=== PATIENT | female | born 1945 | race Two or more races ===

== ENCOUNTER 2022-02-17 00:49 | Emergency (ER) | payer OTHER ==
[~2022-02-17] VITALS: Ht 152.4 cm; Wt 63.5 kg
[~2022-02-17 00:49] MED LIST: ALEN35TA18 PO; AMLO-489 PO; APIX5TAB OR; ASPI1CHW15 PO; ATOR40TA52 PO; AZIT1POW PO; BUSP5TAB51 PO; DULO60CA PO; FURO1TAB31 PO; INSLANTI SC; INSLISPI SC; LATA0.0019 OP; LEV100T PO; METF-929 PO; METO-6 PO; OXYB5TAB61 PO; POTA10TA51 PO; SERT50TA19 PO
[2022-02-17 02:22] LABS: Urine Bacteria NONE SEEN /hpf (None Seen); Urine Blood Negative /uL (Negative); Urine Hyaline Cast FEW /lpf (0 - 2); Urine Specific Gravity 1.015 (1.001-1.035); Urine WBC 4 /hpf (0 - 5)
[2022-02-17 03:25] LABS: Basophils # (auto) 0.1 10 ^3/uL (0-0.2); Eosinophils # (auto) 0.3 10 ^3/uL (0-0.8); Monocytes # (auto) 0.6 10 ^3/uL (0-1.3); Red Blood Cells 3.24 10^6/uL (4.0-5.20)
[2022-02-17 03:26] LABS: Basophils % (auto) 1.1 % (0.0-2.0); Eosinophils % (auto) 4.5 % (0.0-7.0); Hematocrit 24.5 % (36.0-46.0); Hemoglobin 8.4 g/dL (12.2-16.2); Lymphocytes # (auto) 1.9 10 ^3/uL (0.4-5.4); Lymphocytes % (auto) 29.6 % (10.0-50.0); Mean Corpuscular Hemoglobin 25.8 pg (28.0-32.0); Mean Corpuscular Hgb Conc. 34.1 g/dL (32.0-36.0); Mean Corpuscular Volume 75.6 fL (80.0-100.0); Monocytes % (auto) 9.5 % (0.0-12.0); Neutrophils # (auto) 3.5 10 ^3/uL (1.6-8.6); Neutrophils % (auto) 55.3 % (37.0-80.0); Red Cell Distribution Width 15.7 % (11.8-14.3); White Blood Cell 6.4 10^3/uL (4.4-10.8)
[2022-02-17] MEDS ORDERED: NITR-87 PO (03:26)
[2022-02-17 03:45] LABS: Albumin 3.5 g/dL (3.4-5.0); BUN/Creatinine Ratio 21.9; Calcium 8.6 mg/dL (8.5-10.1); Potassium 4.7 mmol/L (3.5-5.1)
[2022-02-17 03:48] LABS: Bilirubin, Total 0.2 mg/dL (0.2-1.0); Total Protein 6.8 g/dL (6.4-8.2)
[2022-02-17] MEDS ORDERED: HYDROcodone-ACET 5/325MG TAB PO ONE (04:15)
[2022-02-17 05:20] VITALS: BP 160/43
[2022-02-18] MEDS ORDERED: HYDR-4902 PO (21:47)
== END 2022-02-17 05:30 | disposition home or self-care (01) ==
LOC: ER 00:49
DX: N39.0 Urinary tract infection, site not specified (principal); I10 Essential (primary) hypertension; D64.9 Anemia, unspecified; E11.9 Type 2 diabetes mellitus without complications; Z79.4 Long term (current) use of insulin; Z79.899 Other long term (current) drug therapy; Z79.82 Long term (current) use of aspirin; Z79.2 Long term (current) use of antibiotics
CPT/HCPCS: 36415; 74176; 80053; 81001; 85025; 93005

== ENCOUNTER → 2022-02-18 | Emergency (ER) | payer OTHER ==
[~2022-02-18] VITALS: Ht 152.4 cm; Wt 63.5 kg
[~2022-02-18] MED LIST changes: +HYDR-4902 PO; +HYDROcodone-ACET 5/325MG TAB PO ONE; +IOHEXOL 300 MG/ML 100ML BOTTLE IJ ONE; +NITR-87 PO; +SODIUM CHLORIDE 0.9% 500 ML IV ONE; +fentaNYL CITRATE 100 MCG/2 ML VL IV ONE
[2022-02-18 17:00] LABS: Basophils # (auto) 0.1 10 ^3/uL (0-0.2); Basophils % (auto) 0.8 % (0.0-2.0); Eosinophils # (auto) 0.2 10 ^3/uL (0-0.8); Eosinophils % (auto) 3.1 % (0.0-7.0); Hematocrit 24.7 % (36.0-46.0); Hemoglobin 8.2 g/dL (12.2-16.2); Lymphocytes # (auto) 1.6 10 ^3/uL (0.4-5.4); Lymphocytes % (auto) 23.7 % (10.0-50.0); Mean Corpuscular Hemoglobin 25.2 pg (28.0-32.0); Mean Corpuscular Volume 76.3 fL (80.0-100.0); Monocytes # (auto) 0.6 10 ^3/uL (0-1.3); Monocytes % (auto) 8.6 % (0.0-12.0); Neutrophils # (auto) 4.4 10 ^3/uL (1.6-8.6); Neutrophils % (auto) 63.8 % (37.0-80.0); Red Blood Cells 3.24 10^6/uL (4.0-5.20); Red Cell Distribution Width 15.4 % (11.8-14.3); White Blood Cell 6.9 10^3/uL (4.4-10.8)
[2022-02-18 17:16] LABS: Albumin 3.6 g/dL (3.4-5.0); Calcium 8.6 mg/dL (8.5-10.1); Potassium 4.5 mmol/L (3.5-5.1)
[2022-02-18 17:19] LABS: BUN/Creatinine Ratio 20.5
[2022-02-18 17:21] LABS: Bilirubin, Total 0.2 mg/dL (0.2-1.0); Total Protein 6.7 g/dL (6.4-8.2)
[2022-02-18 22:59] VITALS: BP 167/57
== END | disposition home or self-care (01) ==
LOC: ER 15:55
DX: R10.32 Left lower quadrant pain (principal); R93.89 Abnormal findings on diagnostic imaging of other specified body structures; N63.31 Unspecified lump in axillary tail of the right breast; N63.10 Unspecified lump in the right breast, unspecified quadrant; E11.9 Type 2 diabetes mellitus without complications; I10 Essential (primary) hypertension
CPT/HCPCS: 36415; 74177; 80053; 83605; 84484; 85025; 93005; 96361; 96374; 99285; J3010; J7030; Q9967

== ENCOUNTER → 2022-12-21 | Outpatient (CLI) | payer OTHER ==
[~2022-12-21] MED LIST changes: -HYDROcodone-ACET 5/325MG TAB PO ONE; -IOHEXOL 300 MG/ML 100ML BOTTLE IJ ONE; +LEVO500T31 PO; -SODIUM CHLORIDE 0.9% 500 ML IV ONE; -fentaNYL CITRATE 100 MCG/2 ML VL IV ONE
[2022-12-21 13:38] LABS: Calcium 8.8 mg/dL (8.5-10.1); Potassium 5.5 mmol/L (3.5-5.1)
[2022-12-21 13:45] LABS: Albumin 3.1 g/dL (3.4-5.0); BUN/Creatinine Ratio 18.5 (10.0-20.0); Bilirubin, Total 0.2 mg/dL (0.2-1.0); Total Protein 6.6 g/dL (6.4-8.2)
[2022-12-22 06:59] LABS: Basophils # (auto) 0.1 10 ^3/uL (0-0.2); Eosinophils # (auto) 0.2 10 ^3/uL (0-0.8)
[2022-12-22 07:01] LABS: Basophils % (auto) 1.5 % (0.0-2.0); Hematocrit 25.4 % (36.0-46.0); Lymphocytes # (auto) 1.8 10 ^3/uL (0.4-5.4); Lymphocytes % (auto) 25.7 % (10.0-50.0); Mean Corpuscular Hemoglobin 25.4 pg (28.0-32.0); Mean Corpuscular Hgb Conc. 31.5 g/dL (32.0-36.0); Mean Corpuscular Volume 80.7 fL (80.0-100.0); Monocytes # (auto) 0.4 10 ^3/uL (0-1.3); Monocytes % (auto) 6.3 % (0.0-12.0); Neutrophils # (auto) 4.4 10 ^3/uL (1.6-8.6); Neutrophils % (auto) 63.5 % (37.0-80.0); Nucleated Red Blood Cells % 1.2 %; Red Blood Cells 3.15 10^6/uL (4.0-5.20); Red Cell Distribution Width 16.4 % (11.8-14.3); White Blood Cell 6.9 10^3/uL (4.4-10.8)
== END | disposition home or self-care (01) ==
LOC: LAB 08:00
PROVIDERS: ATTEND Internal Medicine
DX: I12.9 Hypertensive chronic kidney disease with stage 1 through stage 4 chronic kidney disease, or unspecified chronic kidney disease (principal); E11.22 Type 2 diabetes mellitus with diabetic chronic kidney disease; N18.31 Chronic kidney disease, stage 3a
CPT/HCPCS: 36415; 80053; 80061; 83036; 84443; 85025

== ENCOUNTER → 2023-01-03 | Outpatient (CLI) | payer OTHER | END | disposition home or self-care (01) | LOC: LAB 14:37 | PROVIDERS: ATTEND Internal Medicine | DX: I12.9 Hypertensive chronic kidney disease with stage 1 through stage 4 chronic kidney disease, or unspecified chronic kidney disease (principal); E11.22 Type 2 diabetes mellitus with diabetic chronic kidney disease; N18.31 Chronic kidney disease, stage 3a | CPT/HCPCS: 82270 ==

== ENCOUNTER 2023-02-03 09:59 | Inpatient (IN) | payer OTHER ==
[~2023-02-03] VITALS: Ht 152.4 cm; Wt 58.3 kg
[~2023-02-03 09:59] MED LIST changes: -AMLO-489 PO; +AMLO1TAB22 PO; +ASPI-736 PO; -ASPI1CHW15 PO; -DULO60CA PO; +DULO60CA41 PO; -LATA0.0019 OP; +LATA0.008 OP; +OXYB5TAB10 PO; -OXYB5TAB61 PO; +SERT-206 PO; -SERT50TA19 PO
[2023-02-03 11:00] LABS: Basophils # (auto) 0 10 ^3/uL (0-0.2); Basophils % (auto) 0.9 % (0.0-2.0); Eosinophils # (auto) 0.2 10 ^3/uL (0-0.8); Eosinophils % (auto) 4.5 % (0.0-7.0); Hematocrit 25.3 % (36.0-46.0); Hemoglobin 8.4 g/dL (12.2-16.2); Lymphocytes # (auto) 1.6 10 ^3/uL (0.4-5.4); Lymphocytes % (auto) 29.6 % (10.0-50.0); Mean Corpuscular Hemoglobin 25.7 pg (28.0-32.0); Mean Corpuscular Hgb Conc. 33.1 g/dL (32.0-36.0); Mean Corpuscular Volume 77.7 fL (80.0-100.0); Monocytes # (auto) 0.4 10 ^3/uL (0-1.3); Monocytes % (auto) 8.4 % (0.0-12.0); Neutrophils % (auto) 56.6 % (37.0-80.0); Red Blood Cells 3.26 10^6/uL (4.0-5.20); White Blood Cell 5.3 10^3/uL (4.4-10.8)
[2023-02-03 11:17] LABS: Partial Thromboplastin Time 24.8 sec (24.6-33.4)
[2023-02-03 11:18] LABS: Albumin 3.3 g/dL (3.4-5.0); Calcium 8.1 mg/dL (8.5-10.1)
[2023-02-03 11:22] LABS: BUN/Creatinine Ratio 21.5 (10.0-20.0); Bilirubin, Total 0.2 mg/dL (0.2-1.0); Total Protein 6.4 g/dL (6.4-8.2)
[2023-02-03 11:56] LABS: Potassium 5.9 mmol/L (3.5-5.1)
[2023-02-03] MEDS ORDERED: CALCIUM GLUC 1,000mg/50ml-NS 50 ML IV ONE (12:15)
[2023-02-03] MEDS ORDERED: SODIUM BICARBONATE 8.4 % INJ 50ML VIAL IV ONE ×2 (12:15→14:07)
[2023-02-03] MEDS ORDERED: DEXTROSE (50%) 50ML SYRG IV PRN ×2 (12:45)
[2023-02-03 13:22] LABS: Magnesium 2.4 mg/dL (1.6-2.6)
[2023-02-03 15:16] LABS: Creatinine, Urine 67 mg/dL (30.0-125.0); Sodium Urine 43 mmol/L (40-220)
[2023-02-03] MEDS ORDERED: DEXTROSE (50%) 50ML SYRG IV ONE (15:30)
[2023-02-03] MEDS ORDERED: SODIUM ZIRCONIUM CYCL 10 GM PAK PO ONE (15:30)
[2023-02-03] MEDS ORDERED: FUROSEMIDE 40 MG/4 ML VIAL IV ONE (15:30)
[2023-02-03] MEDS ORDERED: ALBUTEROL SULF 2.5 MG/0.5ML(0.5%) NEB SOLN NEB ONE (15:30)
[2023-02-03] MEDS ORDERED: InsuLIN REG 1unit/0.01ml Soln (100units/ml) IV ONE (15:30)
[2023-02-03] MEDS: SODIUM CHLORIDE 0.9% 1,000 ML IV SCH (16:10)
[2023-02-03] MEDS: ACETAMINOPHEN 325 MG TAB PO PRN (16:52)
[2023-02-03] MEDS: InsuLIN REG 1unit/0.01ml Soln (100units/ml) SC SCH ×2 (17:04→22:45)
[2023-02-03] MEDS: ACCU-CHEK COMFORT CURVE STRIP VI SCH ×3 (17:05→22:45)
[2023-02-03 17:30] LABS: Calcium 8.7 mg/dL (8.5-10.1)
[2023-02-03 19:10] LABS: Calcium 8.8 mg/dL (8.5-10.1); Potassium 4.2 mmol/L (3.5-5.1)
[2023-02-03 19:12] LABS: BUN/Creatinine Ratio 20.8 (10.0-20.0)
[2023-02-03 22:00] VITALS: BP_SYST 132; BP_SYST 145; BP_DIAS 44; BP_DIAS 56
[2023-02-03] MEDS: APIXABAN 5 MG TAB PO SCH (22:45)
[2023-02-03] MEDS: LATANOPROST 0.005 % OPTH(EYE) SOL 2.5ML OP SCH (22:45)
[2023-02-04] MEDS: ACETAMINOPHEN 325 MG TAB PO PRN (00:46)
[2023-02-04 05:00] VITALS: BP 153/44
[2023-02-04] MEDS: SODIUM CHLORIDE 0.9% 1,000 ML IV SCH (05:20)
[2023-02-04] MEDS: ACCU-CHEK COMFORT CURVE STRIP VI SCH ×8 (06:23→22:11)
[2023-02-04] MEDS: LEVOTHYROXINE SODIUM 100 MCG TAB PO SCH (06:25)
[2023-02-04] MEDS: InsuLIN REG 1unit/0.01ml Soln (100units/ml) SC SCH ×4 (06:26→21:38)
[2023-02-04] MEDS ORDERED: ALENDRONATE SODIUM 35 MG PO SCH (06:30)
[2023-02-04 08:00] VITALS: BP 134/36
[2023-02-04] MEDS: PATIENTS OWN MEDICATION (Duloxetine Hcl (Cymbalta) 60 MG) PO SCH (10:00)
[2023-02-04] MEDS ORDERED: amLODIPine BESYLATE 5 MG TAB PO SCH (10:00)
[2023-02-04] MEDS: METOPROLOL SUCCINATE XL 50 MG TAB PO SCH (10:00)
[2023-02-04] MEDS ORDERED: amLODIPine BESYLATE 5 MG TAB PO ONE (10:45)
[2023-02-04] MEDS: APIXABAN 5 MG TAB PO SCH ×2 (11:30→21:15)
[2023-02-04] MEDS: ATORVASTATIN 20 MG TAB PO SCH (11:30)
[2023-02-04] MEDS: ASPirin-EC 81 mg tab PO SCH (11:30)
[2023-02-04] MEDS: SERTRALINE HCL 50 MG TAB PO SCH (11:31)
[2023-02-04] MEDS: OXYBUTYNIN CHL 5 MG TAB PO SCH (11:31)
[2023-02-04] MEDS: FUROSEMIDE 40 MG TAB PO SCH (11:38)
[2023-02-04] MEDS: busPIRone HCL 10 MG TAB PO SCH (11:41)
[2023-02-04 11:54] LABS: Calcium 8.3 mg/dL (8.5-10.1); Potassium 5.4 mmol/L (3.5-5.1)
[2023-02-04 11:57] LABS: BUN/Creatinine Ratio 20.2 (10.0-20.0)
[2023-02-04 12:00] VITALS: BP 144/37
[2023-02-04 16:00] VITALS: BP 143/34
[2023-02-04] MEDS: LATANOPROST 0.005 % OPTH(EYE) SOL 2.5ML OP SCH (21:15)
[2023-02-04 22:00] VITALS: BP 149/52
[2023-02-05] MEDS: ACETAMINOPHEN 325 MG TAB PO PRN (01:37)
[2023-02-05 05:00] VITALS: BP 153/50
[2023-02-05] MEDS: ACCU-CHEK COMFORT CURVE STRIP VI SCH ×5 (05:34→12:02)
[2023-02-05 06:05] LABS: Calcium 8.5 mg/dL (8.5-10.1); Potassium 4.9 mmol/L (3.5-5.1)
[2023-02-05 06:09] LABS: BUN/Creatinine Ratio 19.7 (10.0-20.0)
[2023-02-05] MEDS: LEVOTHYROXINE SODIUM 100 MCG TAB PO SCH (06:13)
[2023-02-05] MEDS: InsuLIN REG 1unit/0.01ml Soln (100units/ml) SC SCH ×2 (07:23→11:30)
[2023-02-05 08:00] VITALS: BP 130/47
[2023-02-05] MEDS: APIXABAN 5 MG TAB PO SCH (09:16)
[2023-02-05] MEDS: ASPirin-EC 81 mg tab PO SCH (09:16)
[2023-02-05] MEDS: ATORVASTATIN 20 MG TAB PO SCH (09:16)
[2023-02-05] MEDS: SERTRALINE HCL 50 MG TAB PO SCH (09:16)
[2023-02-05] MEDS: OXYBUTYNIN CHL 5 MG TAB PO SCH (09:16)
[2023-02-05] MEDS: busPIRone HCL 10 MG TAB PO SCH (09:18)
[2023-02-05] MEDS: METOPROLOL SUCCINATE XL 50 MG TAB PO SCH (09:21)
[2023-02-05] MEDS: PATIENTS OWN MEDICATION (Duloxetine Hcl (Cymbalta) 60 MG) PO SCH (09:21)
[2023-02-05] MEDS: FUROSEMIDE 40 MG TAB PO SCH (09:21)
[2023-02-05] MEDS ORDERED: amLODIPine BESYLATE 5 MG TAB PO SCH (10:00)
[2023-02-05] MEDS ORDERED: LISI20TA56 PO (11:02)
[2023-02-05 12:00] VITALS: BP 121/42
[2023-02-05 13:01] VITALS: BP 130/47
== END 2023-02-05 13:45 | disposition home or self-care (01) | DRG 103 ==
LOC: ER 09:59 → TELE 12:42 → TELE-CENTR 21:41
PROVIDERS: ADMIT Nurse Practitioner Family; ATTEND Internal Medicine Geriatric Medicine
DX: R51.9 Headache, unspecified (principal); E87.1 Hypo-osmolality and hyponatremia; F02.83 Dementia in other diseases classified elsewhere, unspecified severity, with mood disturbance; I69.354 Hemiplegia and hemiparesis following cerebral infarction affecting left non-dominant side; N17.9 Acute kidney failure, unspecified; D64.9 Anemia, unspecified; E03.9 Hypothyroidism, unspecified; E11.22 Type 2 diabetes mellitus with diabetic chronic kidney disease; E11.9 Type 2 diabetes mellitus without complications; E78.5 Hyperlipidemia, unspecified; E87.5 Hyperkalemia; I12.9 Hypertensive chronic kidney disease with stage 1 through stage 4 chronic kidney disease, or unspecified chronic kidney disease; I48.91 Unspecified atrial fibrillation; N18.9 Chronic kidney disease, unspecified; R56.9 Unspecified convulsions; Z79.01 Long term (current) use of anticoagulants; Z79.899 Other long term (current) drug therapy; Z90.49 Acquired absence of other specified parts of digestive tract
CPT/HCPCS: 36415; 70450; 70545; 70551; 80048; 80053; 82570; 82962; 83735; 84100; 84132; 84300; 84443; 85025; 85610; 85730; 94644; 96365; 96375; 97163; 99291; G0378; J1815; J7060

== ENCOUNTER 2023-02-15 19:21 | Inpatient (IN) | payer OTHER ==
[~2023-02-15] VITALS: Ht 152.4 cm; Wt 61.5 kg
[~2023-02-15 19:21] MED LIST changes: -AML5T PO; -APIX5TAB PO; -FUR20T PO; -LEVE100020 PO; -LEVO-451 PO
[2023-02-15 20:17] LABS: Basophils # (auto) 0.2 10 ^3/uL (0-0.2); Basophils % (auto) 2.3 % (0.0-2.0); Eosinophils # (auto) 0.3 10 ^3/uL (0-0.8); Eosinophils % (auto) 3.8 % (0.0-7.0); Hematocrit 25.9 % (36.0-46.0); Hemoglobin 8.3 g/dL (12.2-16.2); Lymphocytes # (auto) 2.6 10 ^3/uL (0.4-5.4); Lymphocytes % (auto) 32.5 % (10.0-50.0); Mean Corpuscular Hemoglobin 24.9 pg (28.0-32.0); Mean Corpuscular Volume 77.7 fL (80.0-100.0); Monocytes # (auto) 0.7 10 ^3/uL (0-1.3); Monocytes % (auto) 9.4 % (0.0-12.0); Neutrophils # (auto) 4.1 10 ^3/uL (1.6-8.6); Red Blood Cells 3.33 10^6/uL (4.0-5.20); Red Cell Distribution Width 14.8 % (11.8-14.3); White Blood Cell 7.9 10^3/uL (4.4-10.8)
[2023-02-15] MEDS ORDERED: ALBUTEROL SULF 2.5 MG/0.5ML(0.5%) NEB SOLN NEB ONE (20:30)
[2023-02-15] MEDS ORDERED: CALCIUM GLUC 1,000mg/50ml-NS 50 ML IV ONE (20:30)
[2023-02-15] MEDS ORDERED: InsuLIN REG 1unit/0.01ml Soln (100units/ml) IV ONE (20:30)
[2023-02-15] MEDS ORDERED: FUROSEMIDE 40 MG/4 ML VIAL IV ONE (20:30)
[2023-02-15] MEDS ORDERED: SODIUM ZIRCONIUM CYCL 10 GM PAK PO ONE (20:30)
[2023-02-15 20:45] LABS: Albumin 3.7 g/dL (3.4-5.0); Calcium 8.4 mg/dL (8.5-10.1); Magnesium 2.6 mg/dL (1.6-2.6)
[2023-02-15 20:48] LABS: BUN/Creatinine Ratio 19.3 (10.0-20.0); Bilirubin, Total 0.1 mg/dL (0.2-1.0); Total Protein 6.5 g/dL (6.4-8.2)
[2023-02-15 21:32] LABS: Potassium 7.3 mmol/L (3.5-5.1)
[2023-02-15] MEDS ORDERED: DEXTROSE (50%) 50ML SYRG IV PRN (22:45)
[2023-02-15] MEDS ORDERED: ACETAMINOPHEN 325 MG TAB PO PRN (22:45)
[2023-02-15] MEDS ORDERED: ONDANSETRON HCL 4 MG/2 ML VIAL IV PRN (22:45)
[2023-02-15] MEDS ORDERED: MORPHINE SULFATE INJ 2 MG/ml SYRG IV PRN (22:45)
[2023-02-15] MEDS ORDERED: DOCUSATE SOD 100 MG CAP PO PRN (22:45)
[2023-02-15] MEDS ORDERED: NITROGLYCERIN 0.4 MG SL TAB SL PRN (22:45)
[2023-02-15] MEDS ORDERED: LEVO-451 PO (22:58)
[2023-02-15] MEDS ORDERED: FUR20T PO (22:58)
[2023-02-15] MEDS ORDERED: LEVE100020 PO (22:58)
[2023-02-15] MEDS: HYDROcodone-ACET 5/325MG TAB PO PRN (23:32)
[2023-02-15] MEDS ORDERED: DEXTROSE 10% 250 ML IV ONE (23:50)
[2023-02-15] MEDS: SODIUM BICARBONATE 8.4% INJ 50ML SYRINGE IV ONE (23:55)
[2023-02-16] MEDS: SODIUM BICARBONATE 8.4% INJ 50ML SYRINGE IV ONE (00:04)
[2023-02-16] MEDS ORDERED: DEXTROSE 10% 250 ML Bag IV ONE (00:15)
[2023-02-16] MEDS: SODIUM CHLORIDE 0.9% 1,000 ML IV SCH ×2 (02:15→08:45)
[2023-02-16] MEDS: HYDROcodone-ACET 5/325MG TAB PO PRN (03:46)
[2023-02-16 06:09] LABS: Basophils # (auto) 0.1 10 ^3/uL (0-0.2); Basophils % (auto) 0.5 % (0.0-2.0); Eosinophils # (auto) 0.1 10 ^3/uL (0-0.8); Eosinophils % (auto) 0.7 % (0.0-7.0); Hematocrit 23.4 % (36.0-46.0); Hemoglobin 7.6 g/dL (12.2-16.2); Lymphocytes % (auto) 20.3 % (10.0-50.0); Mean Corpuscular Hemoglobin 25.5 pg (28.0-32.0); Mean Corpuscular Hgb Conc. 32.4 g/dL (32.0-36.0); Mean Corpuscular Volume 78.8 fL (80.0-100.0); Monocytes # (auto) 0.6 10 ^3/uL (0-1.3); Monocytes % (auto) 6.7 % (0.0-12.0); Neutrophils % (auto) 71.8 % (37.0-80.0); Nucleated Red Blood Cells % 0.1 %; Red Blood Cells 2.97 10^6/uL (4.0-5.20); Red Cell Distribution Width 14.8 % (11.8-14.3); White Blood Cell 9.8 10^3/uL (4.4-10.8)
[2023-02-16 06:28] LABS: Albumin 3.2 g/dL (3.4-5.0); Calcium 8.4 mg/dL (8.5-10.1); Potassium 4.9 mmol/L (3.5-5.1)
[2023-02-16 06:30] LABS: BUN/Creatinine Ratio 17.7 (10.0-20.0)
[2023-02-16 06:33] LABS: Bilirubin, Total 0.1 mg/dL (0.2-1.0); Total Protein 6.2 g/dL (6.4-8.2)
[2023-02-16] MEDS: ACCU-CHEK COMFORT CURVE STRIP VI SCH ×3 (06:39→17:23)
[2023-02-16] MEDS: InsuLIN REG 1unit/0.01ml Soln (100units/ml) SC SCH ×3 (06:44→17:00)
[2023-02-16] MEDS ORDERED: LEVOTHYROXINE SODIUM 25 MCG TAB PO SCH (07:00)
[2023-02-16] MEDS ORDERED: LACTULOSE 20Gm/30ML SOLN PO ONE (07:15)
[2023-02-16 09:06] LABS: Protein, Urine 16.4 mg/dL (0.0-11.9)
[2023-02-16 09:48] LABS: Urine Bacteria NONE SEEN /hpf (None Seen); Urine Blood Negative /uL (Negative); Urine Hyaline Cast FEW /lpf (0 - 2); Urine Specific Gravity 1.007 (1.001-1.035); Urine WBC <1 /hpf (0 - 5)
[2023-02-16] MEDS ORDERED: FUROSEMIDE 20 MG TAB PO SCH (10:00)
[2023-02-16] MEDS ORDERED: levETIRAcetam 500 MG TAB PO SCH (10:00)
[2023-02-16] MEDS ORDERED: LISINOPRIL 20 MG TAB PO SCH (10:00)
[2023-02-16] MEDS: METOPROLOL SUCCINATE XL 50 MG TAB PO SCH ×2 (10:00→16:18)
[2023-02-16] MEDS ORDERED: APIXABAN 5 MG TAB PO SCH ×2 (10:00)
[2023-02-16] MEDS ORDERED: OXYBUTYNIN CHL 5 MG TAB PO SCH (10:00)
[2023-02-16] MEDS: DULoxetine HCL 30 MG CAP PO SCH ×2 (10:00→10:27)
[2023-02-16] MEDS ORDERED: LATANOPROST 0.005 % OPTH(EYE) SOL 2.5ML OP SCH (10:00)
[2023-02-16] MEDS ORDERED: busPIRone HCL 10 MG TAB PO SCH (10:00)
[2023-02-16] MEDS ORDERED: SERTRALINE HCL 50 MG TAB PO SCH (10:00)
[2023-02-16] MEDS ORDERED: ASPirin 81 mg TAB PO SCH (10:00)
[2023-02-16 10:45] LABS: Basophils # (auto) 0.1 10 ^3/uL (0-0.2); Eosinophils # (auto) 0.1 10 ^3/uL (0-0.8); Eosinophils % (auto) 1.7 % (0.0-7.0); Monocytes # (auto) 0.7 10 ^3/uL (0-1.3); Nucleated Red Blood Cells % 0.1 %; White Blood Cell 8.4 10^3/uL (4.4-10.8)
[2023-02-16 10:48] LABS: Basophils % (auto) 0.8 % (0.0-2.0); Hematocrit 23.5 % (36.0-46.0); Hemoglobin 7.6 g/dL (12.2-16.2); Lymphocytes # (auto) 2.2 10 ^3/uL (0.4-5.4); Lymphocytes % (auto) 26.4 % (10.0-50.0); Mean Corpuscular Hgb Conc. 32.3 g/dL (32.0-36.0); Mean Corpuscular Volume 77.2 fL (80.0-100.0); Monocytes % (auto) 8.5 % (0.0-12.0); Neutrophils # (auto) 5.2 10 ^3/uL (1.6-8.6); Neutrophils % (auto) 62.6 % (37.0-80.0); Red Blood Cells 3.04 10^6/uL (4.0-5.20); Red Cell Distribution Width 14.5 % (11.8-14.3)
[2023-02-16 11:09] LABS: Calcium 8.5 mg/dL (8.5-10.1); Potassium 4.8 mmol/L (3.5-5.1)
[2023-02-16 11:10] LABS: BUN/Creatinine Ratio 18.3 (10.0-20.0); Phosphorus 4.6 mg/dL (2.5-4.90)
[2023-02-16 11:41] LABS: Folate (Folic Acid) > 24.00 ng/mL (5.38-24)
[2023-02-16] MEDS ORDERED: CYANOCOBALAMIN (B-12) 1000 MCG/1 ML VIAL IM ONE (14:15)
[2023-02-16] MEDS ORDERED: CYANOCOBALAMIN (B-12) 1000 MCG/1 ML VIAL SUBCUT ONE (15:45)
[2023-02-16] MEDS ORDERED: AML5T PO (16:44)
[2023-02-16] MEDS ORDERED: APIX5TAB PO (16:44)
[2023-02-16 17:05] VITALS: BP 139/79
[2023-02-16] MEDS ORDERED: ATORVASTATIN 20 MG TAB PO SCH (22:00)
[2023-02-16] MEDS ORDERED: InsuLIN REG 1unit/0.01ml Soln (100units/ml) SC SCH (22:00)
== END 2023-02-16 17:55 | disposition home or self-care (01) | DRG 641 ==
LOC: ER 19:24 → TELE 22:58
PROVIDERS: ADMIT Nurse Practitioner Family; ATTEND Internal Medicine
DX: E87.6 Hypokalemia (principal); N17.9 Acute kidney failure, unspecified; I13.0 Hypertensive heart and chronic kidney disease with heart failure and stage 1 through stage 4 chronic kidney disease, or unspecified chronic kidney disease; I50.20 Unspecified systolic (congestive) heart failure; E87.5 Hyperkalemia; E78.5 Hyperlipidemia, unspecified; F32.A Depression, unspecified; D64.9 Anemia, unspecified; E03.9 Hypothyroidism, unspecified; R56.9 Unspecified convulsions; I48.91 Unspecified atrial fibrillation; E11.22 Type 2 diabetes mellitus with diabetic chronic kidney disease; N18.32 Chronic kidney disease, stage 3b; Z82.0 Family history of epilepsy and other diseases of the nervous system; Z86.73 Personal history of transient ischemic attack (TIA), and cerebral infarction without residual deficits; Z79.01 Long term (current) use of anticoagulants; Z90.49 Acquired absence of other specified parts of digestive tract
CPT/HCPCS: 36415; 76775; 80048; 80053; 81001; 82043; 82306; 82570; 82607; 82728; 82746; 82962; 83036; 83540; 83550; 83615; 83735; 83880; 83970; 84100; 84132; 84133; 84156; 84300; 84484; 85025; 85045; 93005; 93306; 94640; 96365; 96375; G0378; J1815

== ENCOUNTER → 2023-02-15 | Outpatient (CLI) | payer OTHER ==
[~2023-02-15] MED LIST changes: +AML5T PO; -AMLO1TAB22 PO; +APIX5TAB PO; -AZIT1POW PO; +FUR20T PO; +LEVE100020 PO; +LEVO-451 PO; -LEVO500T31 PO; +LISI20TA56 PO; -NITR-87 PO
[2023-02-15 09:52] LABS: Basophils # (auto) 0.1 10 ^3/uL (0-0.2); Eosinophils # (auto) 0.3 10 ^3/uL (0-0.8); Eosinophils % (auto) 4.2 % (0.0-7.0); Monocytes # (auto) 0.4 10 ^3/uL (0-1.3); White Blood Cell 6.2 10^3/uL (4.4-10.8)
[2023-02-15 09:54] LABS: Basophils % (auto) 1.1 % (0.0-2.0); Hematocrit 24.8 % (36.0-46.0); Hemoglobin 7.9 g/dL (12.2-16.2); Lymphocytes # (auto) 1.6 10 ^3/uL (0.4-5.4); Lymphocytes % (auto) 25.3 % (10.0-50.0); Mean Corpuscular Hemoglobin 25.2 pg (28.0-32.0); Mean Corpuscular Volume 78.9 fL (80.0-100.0); Neutrophils # (auto) 3.9 10 ^3/uL (1.6-8.6); Neutrophils % (auto) 62.4 % (37.0-80.0); Nucleated Red Blood Cells % 0.1 %; Red Blood Cells 3.14 10^6/uL (4.0-5.20); Red Cell Distribution Width 14.8 % (11.8-14.3)
[2023-02-15 10:43] LABS: % Iron Saturation 36.7 % (15-50)
[2023-02-15 10:44] LABS: BUN/Creatinine Ratio 16.7 (10.0-20.0)
[2023-02-15 13:13] LABS: Potassium 6.5 mmol/L (3.5-5.1)
== END | disposition home or self-care (01) ==
LOC: LAB 09:32
PROVIDERS: ATTEND Internal Medicine
DX: E11.22 Type 2 diabetes mellitus with diabetic chronic kidney disease (principal); N18.4 Chronic kidney disease, stage 4 (severe); E78.5 Hyperlipidemia, unspecified; D64.9 Anemia, unspecified; Q61.5 Medullary cystic kidney
CPT/HCPCS: 36415; 80048; 82728; 83540; 83550; 85025

== ENCOUNTER → 2023-02-24 | Outpatient (CLI) | payer OTHER ==
[~2023-02-24] MED LIST changes: +AML5T PO; -APIX5TAB OR; +APIX5TAB PO; -BUSP5TAB51 PO; -DULO60CA41 PO; +FUR20T PO; -FURO1TAB31 PO; -LEV100T PO; +LEVE100020 PO; +LEVO-451 PO; -LISI20TA56 PO; -OXYB5TAB10 PO
[2023-02-24 09:32] LABS: Basophils # (auto) 0.1 10 ^3/uL (0-0.2); Eosinophils # (auto) 0.3 10 ^3/uL (0-0.8); Lymphocytes # (auto) 2.1 10 ^3/uL (0.4-5.4); Mean Corpuscular Volume 78.3 fL (80.0-100.0); Monocytes # (auto) 0.5 10 ^3/uL (0-1.3)
[2023-02-24 09:34] LABS: Basophils % (auto) 0.9 % (0.0-2.0); Eosinophils % (auto) 4.5 % (0.0-7.0); Hematocrit 24.3 % (36.0-46.0); Lymphocytes % (auto) 29.9 % (10.0-50.0); Mean Corpuscular Hemoglobin 25.7 pg (28.0-32.0); Mean Corpuscular Hgb Conc. 32.9 g/dL (32.0-36.0); Monocytes % (auto) 7.9 % (0.0-12.0); Neutrophils % (auto) 56.8 % (37.0-80.0)
[2023-02-24 10:20] LABS: BUN/Creatinine Ratio 20.9 (10.0-20.0); Calcium 8.8 mg/dL (8.5-10.1); Potassium 5.5 mmol/L (3.5-5.1)
== END | disposition home or self-care (01) ==
LOC: LAB 09:18
PROVIDERS: ATTEND Internal Medicine
DX: N18.30 Chronic kidney disease, stage 3 unspecified (principal); D50.9 Iron deficiency anemia, unspecified
CPT/HCPCS: 36415; 80048; 85025

== ENCOUNTER 2023-07-20 23:45 | Emergency (ER) | payer OTHER ==
[~2023-07-20] VITALS: Ht 152.4 cm; Wt 53.7 kg
[2023-07-21 00:10] VITALS: BP 144/57; RESP 16; O2SAT 97
[2023-07-21 00:19] VITALS: PULSE 44
[2023-07-21 01:05] LABS: Basophils # (auto) 0.1 10 ^3/uL (0-0.2); Eosinophils # (auto) 0.3 10 ^3/uL (0-0.8); Hematocrit 23.1 % (36.0-46.0); Hemoglobin 7.5 g/dL (12.2-16.2); Mean Corpuscular Hemoglobin 24.6 pg (28.0-32.0); Monocytes # (auto) 0.6 10 ^3/uL (0-1.3); Neutrophils # (auto) 3.8 10 ^3/uL (1.6-8.6); Red Blood Cells 3.05 10^6/uL (4.0-5.20); White Blood Cell 7.5 10^3/uL (4.4-10.8)
[2023-07-21 01:08] LABS: Eosinophils % (auto) 4.6 % (0.0-7.0); Lymphocytes # (auto) 2.6 10 ^3/uL (0.4-5.4); Lymphocytes % (auto) 35.4 % (10.0-50.0); Mean Corpuscular Hgb Conc. 32.4 g/dL (32.0-36.0); Mean Corpuscular Volume 75.9 fL (80.0-100.0); Red Cell Distribution Width 17.1 % (11.8-14.3)
[2023-07-21 01:24] LABS: Albumin 3.9 g/dL (3.2-4.8); Alkaline Phosphatase 58 U/L (46-116); Anion Gap 6 (5-15); Aspartate Aminotransferase 14 U/L (13-40); BUN/Creatinine Ratio 14.5 (10.0-20.0); Blood Urea Nitrogen 18 mg/dL (9-23); Calcium 8.6 mg/dL (8.7-10.4); Carbon Dioxide 23 mmol/L (20-30); Chloride 109 mmol/L (98-107); Glucose 130 mg/dL (74-106); Lipase 32 U/L (12-53); Potassium 4.6 mmol/L (3.5-5.1); Sodium 138 mmol/L (136-145)
[2023-07-21 01:25] LABS: Bilirubin, Total 0.2 mg/dL (0.2-1.0); Total Protein 6.3 g/dL (5.7-8.2)
[2023-07-21 01:27] LABS: Alanine Aminotransferase < 9 U/L (7-40)
== END 2023-07-21 05:26 | disposition left against medical advice (07) ==
LOC: ER 23:45
DX: R10.9 Unspecified abdominal pain (principal); Z53.21 Procedure and treatment not carried out due to patient leaving prior to being seen by health care provider
CPT/HCPCS: 36415; 74176; 80053; 83605; 83690; 84484; 85025; 93005

== ENCOUNTER 2023-07-22 05:16 | Emergency (ER) | payer OTHER ==
[~2023-07-22] VITALS: Ht 152.4 cm; Wt 54.8 kg
[2023-07-22 05:59] VITALS: O2SAT 97
[2023-07-22] MEDS ORDERED: MORPHINE SULFATE INJ 2 MG/ml SYRG IV ONE (07:15)
[2023-07-22] MEDS ORDERED: ONDANSETRON HCL 4 MG/2 ML VIAL IV ONE (07:15)
[2023-07-22 07:25] LABS: Eosinophils # (auto) 0.3 10 ^3/uL (0-0.8); Hemoglobin 7.9 g/dL (12.2-16.2); Lymphocytes # (auto) 1.7 10 ^3/uL (0.4-5.4); Mean Corpuscular Volume 75.1 fL (80.0-100.0); Monocytes # (auto) 0.5 10 ^3/uL (0-1.3); Neutrophils # (auto) 4.2 10 ^3/uL (1.6-8.6); White Blood Cell 6.7 10^3/uL (4.4-10.8)
[2023-07-22 07:29] LABS: Basophils # (auto) 0.1 10 ^3/uL (0-0.2); Basophils % (auto) 0.9 % (0.0-2.0); Eosinophils % (auto) 3.9 % (0.0-7.0); Hematocrit 24.4 % (36.0-46.0); Lymphocytes % (auto) 25.1 % (10.0-50.0); Mean Corpuscular Hemoglobin 24.4 pg (28.0-32.0); Mean Corpuscular Hgb Conc. 32.4 g/dL (32.0-36.0); Monocytes % (auto) 7.6 % (0.0-12.0); Neutrophils % (auto) 62.5 % (37.0-80.0); Red Blood Cells 3.25 10^6/uL (4.0-5.20); Red Cell Distribution Width 17.5 % (11.8-14.3)
[2023-07-22 07:36] LABS: Alkaline Phosphatase 59 U/L (46-116); Anion Gap 7 (5-15); Aspartate Aminotransferase 13 U/L (13-40); Blood Urea Nitrogen 18 mg/dL (9-23); Carbon Dioxide 26 mmol/L (20-30); Chloride 109 mmol/L (98-107); Glucose 140 mg/dL (74-106); Lipase 29 U/L (12-53); Potassium 4.7 mmol/L (3.5-5.1); Sodium 142 mmol/L (136-145)
[2023-07-22 07:37] LABS: Alanine Aminotransferase < 9 U/L (7-40); Bilirubin, Total 0.3 mg/dL (0.2-1.0); Total Protein 6.5 g/dL (5.7-8.2)
[2023-07-22 07:55] LABS: Urine Bacteria NONE SEEN /hpf (None Seen); Urine Blood TRACE /uL (Negative); Urine Clarity Clear (Clear); Urine Color Colorless (Yellow); Urine Protein, UAD TRACE (Negative); Urine Specific Gravity 1.015 (1.001-1.035); Urine Urobilinogen Normal (Negative); Urine WBC 2 /hpf (0 - 5)
[2023-07-22] MEDS ORDERED: cefTRIAXone 1GM/50ML D5W 50 ML IV ONE (08:30)
[2023-07-22] MEDS ORDERED: CYANOCOBALAMIN (B-12) 1000 MCG/1 ML VIAL IM ONE (09:30)
[2023-07-22] MEDS ORDERED: cefTRIAXone SOD 1,000 MG VL IM ONE (11:45)
[2023-07-22] MEDS ORDERED: ONDANSETRON ODT 4 MG TAB PO ONE (11:45)
[2023-07-22] MEDS ORDERED: LIDOCAINE 1% HCL (LOCAL ANESTH.) INJ 20ML MDV ID ONE (11:45)
[2023-07-22] MEDS ORDERED: MORPHINE SULFATE INJ 2 MG/ml SYRG IM ONE (11:45)
[2023-07-22 12:35] VITALS: BP 167/65; PULSE 54; RESP 18
== END 2023-07-22 13:04 | disposition home or self-care (01) ==
LOC: ER 05:16
DX: N39.0 Urinary tract infection, site not specified (principal); R10.9 Unspecified abdominal pain; I10 Essential (primary) hypertension; E11.9 Type 2 diabetes mellitus without complications; Z86.73 Personal history of transient ischemic attack (TIA), and cerebral infarction without residual deficits; Z90.89 Acquired absence of other organs; Z79.899 Other long term (current) drug therapy
CPT/HCPCS: 36415; 80053; 81001; 83690; 84484; 85025; 93005; 96372; 99284; J0696; J2270; J3420; Q0162

== ENCOUNTER 2023-07-25 15:57 | Emergency (ER) | payer OTHER ==
[~2023-07-25] VITALS: Ht 152.4 cm; Wt 53.0 kg
[2023-07-25 16:21] VITALS: BP 181/41; PULSE 55; RESP 16; O2SAT 99
[2023-07-25 16:51] LABS: Urine Bacteria NONE SEEN /hpf (None Seen); Urine Blood Negative /uL (Negative); Urine Clarity Clear (Clear); Urine Color Colorless (Yellow); Urine Hyaline Cast FEW /lpf (0 - 2); Urine Protein, UAD TRACE (Negative); Urine Specific Gravity 1.011 (1.001-1.035); Urine Urobilinogen Normal (Negative); Urine WBC <1 /hpf (0 - 5)
== END 2023-07-25 20:05 | disposition left against medical advice (07) ==
LOC: ER 15:57
DX: R10.31 Right lower quadrant pain (principal); Z53.21 Procedure and treatment not carried out due to patient leaving prior to being seen by health care provider
CPT/HCPCS: 81001; 93005

== ENCOUNTER 2023-08-09 11:36 | Inpatient (IN) | payer OTHER ==
[~2023-08-09] VITALS: Ht 152.4 cm; Wt 54.7 kg
[2023-08-09 12:40] LABS: Basophils # (auto) 0 10 ^3/uL (0-0.2); Eosinophils # (auto) 0.2 10 ^3/uL (0-0.8); Hemoglobin 8.1 g/dL (12.2-16.2); Mean Corpuscular Hemoglobin 23.9 pg (28.0-32.0); Monocytes # (auto) 0.4 10 ^3/uL (0-1.3); Neutrophils # (auto) 3.7 10 ^3/uL (1.6-8.6)
[2023-08-09 12:42] LABS: Basophils % (auto) 0.6 % (0.0-2.0); Eosinophils % (auto) 3.4 % (0.0-7.0); Hematocrit 25.3 % (36.0-46.0); Lymphocytes % (auto) 31.6 % (10.0-50.0); Mean Corpuscular Volume 74.5 fL (80.0-100.0); Monocytes % (auto) 6.2 % (0.0-12.0); Neutrophils % (auto) 58.2 % (37.0-80.0); Nucleated Red Blood Cells % 0.1 %; Red Cell Distribution Width 17.5 % (11.8-14.3); White Blood Cell 6.4 10^3/uL (4.4-10.8)
[2023-08-09 13:04] LABS: Alanine Aminotransferase 26 U/L (7-40); Albumin 4.2 g/dL (3.2-4.8); Alkaline Phosphatase 79 U/L (46-116); Anion Gap 5 (5-15); Aspartate Aminotransferase 24 U/L (13-40); BUN/Creatinine Ratio 14.1 (10.0-20.0); Blood Urea Nitrogen 18 mg/dL (9-23); Calcium 8.5 mg/dL (8.7-10.4); Carbon Dioxide 24 mmol/L (20-30); Chloride 105 mmol/L (98-107); Glucose 125 mg/dL (74-106); Lipase 20 U/L (12-53); Sodium 134 mmol/L (136-145)
[2023-08-09 13:05] LABS: Bilirubin, Total 0.2 mg/dL (0.2-1.0); Total Protein 6.8 g/dL (5.7-8.2)
[2023-08-09 15:02] LABS: Urine Bacteria FEW /hpf (None Seen); Urine Blood Negative /uL (Negative); Urine Clarity Clear (Clear); Urine Color Colorless (Yellow); Urine Protein, UAD Negative (Negative); Urine Specific Gravity 1.009 (1.001-1.035); Urine Urobilinogen Normal (Negative); Urine WBC 1 /hpf (0 - 5)
[2023-08-09] MEDS ORDERED: cefTRIAXone 1GM/50ML D5W 50 ML IV ONE (15:15)
[2023-08-09] MEDS ORDERED: ACETAMINOPHEN 325 MG TAB PO PRN (16:00)
[2023-08-09] MEDS ORDERED: MORPHINE SULFATE INJ 2 MG/ml SYRG IV PRN ×2 (16:00)
[2023-08-09] MEDS ORDERED: NITROGLYCERIN 0.4 MG SL TAB SL PRN (16:00)
[2023-08-09] MEDS ORDERED: ONDANSETRON HCL 4 MG/2 ML VIAL IV PRN (16:00)
[2023-08-09] MEDS ORDERED: HYDROcodone-ACET 5/325MG TAB PO PRN (16:00)
[2023-08-09] MEDS ORDERED: DEXTROSE (50%) 50ML SYRG IV PRN (16:15)
[2023-08-09] MEDS ORDERED: POLYETHYLENE GLYCOL 17 GM PWDR PO PRN (16:45)
[2023-08-09 17:01] LABS: % Iron Saturation 9.6 % (15-50)
[2023-08-09 17:05] LABS: Thyroid Stimulating Hormone 2.19 uIU/mL (0.358-3.74)
[2023-08-09 17:06] LABS: Folate (Folic Acid) 16.36 ng/mL (>5.38)
[2023-08-09 20:40] VITALS: PULSE 53; RESP 18; O2SAT 97
[2023-08-09] MEDS: ACCU-CHEK COMFORT CURVE STRIP VI SCH (20:50)
[2023-08-09] MEDS: PANTOPRAZOLE 40 MG/10 ML VIAL INJ IV SCH (21:01)
[2023-08-09] MEDS: InsuLIN REG 1unit/0.01ml Soln (100units/ml) SC SCH (21:02)
[2023-08-10] VITALS (8 sets, daily range): BP systolic 102–166; BP diastolic 45–59; PULSE 51–85; RESP 11–20; TEMP 97.5–98.3; O2SAT 95–100
[2023-08-10] MEDS ORDERED: METO25TA5 PO (03:43)
[2023-08-10] MEDS ORDERED: FURO1TAB31 PO (03:43)
[2023-08-10] MEDS: ACCU-CHEK COMFORT CURVE STRIP VI SCH ×4 (06:22→21:46)
[2023-08-10] MEDS: LEVOTHYROXINE SODIUM 25 MCG TAB PO SCH (06:24)
[2023-08-10] MEDS: InsuLIN REG 1unit/0.01ml Soln (100units/ml) SC SCH ×4 (06:27→21:58)
[2023-08-10 06:57] LABS: Alanine Aminotransferase 22 U/L (7-40)
[2023-08-10 07:03] LABS: INR 1.04 (0.9-1.15); Partial Thromboplastin Time 28.3 SEC (24.5-34.5); Prothrombin Time 10.9 sec (9.3-11.8)
[2023-08-10 07:19] LABS: Basophils # (auto) 0 10 ^3/uL (0-0.2); Basophils % (auto) 0.6 % (0.0-2.0); Lymphocytes # (auto) 2.1 10 ^3/uL (0.4-5.4); Mean Corpuscular Volume 74.4 fL (80.0-100.0); Monocytes # (auto) 0.5 10 ^3/uL (0-1.3); Neutrophils # (auto) 3.5 10 ^3/uL (1.6-8.6); Nucleated Red Blood Cells % 0.1 %; White Blood Cell 6.4 10^3/uL (4.4-10.8)
[2023-08-10 07:22] LABS: Eosinophils # (auto) 0.3 10 ^3/uL (0-0.8); Hematocrit 23.7 % (36.0-46.0); Hemoglobin 7.8 g/dL (12.2-16.2); Lymphocytes % (auto) 33.5 % (10.0-50.0); Mean Corpuscular Hemoglobin 24.6 pg (28.0-32.0); Monocytes % (auto) 7.4 % (0.0-12.0); Neutrophils % (auto) 54.5 % (37.0-80.0); Red Blood Cells 3.18 10^6/uL (4.0-5.20)
[2023-08-10 07:31] LABS: Alkaline Phosphatase 77 U/L (46-116); Anion Gap 5 (5-15); Aspartate Aminotransferase 22 U/L (13-40); BUN/Creatinine Ratio 14.3 (10.0-20.0); Blood Urea Nitrogen 20 mg/dL (9-23); Calcium 8.5 mg/dL (8.7-10.4); Carbon Dioxide 24 mmol/L (20-30); Chloride 101 mmol/L (98-107); Glucose 110 mg/dL (74-106); Sodium 130 mmol/L (136-145)
[2023-08-10 07:33] LABS: Bilirubin, Total 0.2 mg/dL (0.2-1.0); Total Protein 6.5 g/dL (5.7-8.2)
[2023-08-10] MEDS: APIXABAN 2.5 MG TAB PO SCH ×2 (10:00→21:37)
[2023-08-10] MEDS ORDERED: METOPROLOL SUCCINATE XL 50 MG TAB PO SCH (10:00)
[2023-08-10] MEDS: levETIRAcetam 500 MG TAB PO SCH ×2 (11:17→21:37)
[2023-08-10] MEDS: SERTRALINE HCL 50 MG TAB PO SCH (11:18)
[2023-08-10] MEDS: PANTOPRAZOLE 40 MG/10 ML VIAL INJ IV SCH (11:18)
[2023-08-10] MEDS: amLODIPine BESYLATE 5 MG TAB PO SCH (11:18)
[2023-08-10] MEDS: cefTRIAXone 1GM/50ML D5W 50 ML IV SCH (11:19)
[2023-08-10] MEDS: FERROUS SULFATE 325mg EC TAB PO SCH ×2 (11:39→18:42)
[2023-08-10] MEDS ORDERED: LIDOCAINE VISCOUS 2% 15ML UD ONE ×2 (13:35→16:10)
[2023-08-10] MEDS ORDERED: MIDAZOLAM HCL 5 MG/ML-1ML VIAL ONE (13:35)
[2023-08-10] MEDS ORDERED: diphenhdrAMINE HCL 50 MG/1 ML VL ONE (13:35)
[2023-08-10] MEDS ORDERED: fentaNYL CITRATE 100 MCG/2 ML VL ONE (13:36)
[2023-08-10] MEDS ORDERED: SODIUM CHLORIDE LOCK 10 ML ONE (13:39)
[2023-08-10] MEDS: SUCRALFATE 1 GM/10 ML ORAL SUSP GT SCH (18:42)
[2023-08-10] MEDS: METOCLOPRAMIDE HCL 5MG/ml INJ 2ml VIAL IV SCH (21:37)
[2023-08-11 05:00] VITALS: BP 155/47; PULSE 67; RESP 18; TEMP 98.5; O2SAT 95
[2023-08-11] MEDS: ACCU-CHEK COMFORT CURVE STRIP VI SCH ×4 (06:31→21:44)
[2023-08-11] MEDS: LEVOTHYROXINE SODIUM 25 MCG TAB PO SCH (06:31)
[2023-08-11] MEDS: METOCLOPRAMIDE HCL 5MG/ml INJ 2ml VIAL IV SCH ×3 (06:31→21:44)
[2023-08-11] MEDS: SUCRALFATE 1 GM/10 ML ORAL SUSP GT SCH ×2 (06:31→17:48)
[2023-08-11] MEDS: InsuLIN REG 1unit/0.01ml Soln (100units/ml) SC SCH ×4 (06:41→21:44)
[2023-08-11 06:44] LABS: Chloride 109 mmol/L (98-107); Potassium 4.9 mmol/L (3.5-5.1); Sodium 139 mmol/L (136-145)
[2023-08-11 06:45] LABS: Anion Gap 7 (5-15); Calcium 8.7 mg/dL (8.5-10.1); Carbon Dioxide 23 mmol/L (20-30)
[2023-08-11 06:50] LABS: BUN/Creatinine Ratio 15.6 (10.0-20.0); Blood Urea Nitrogen 19 mg/dL (9-23); Glucose 76 mg/dL (74-106)
[2023-08-11 06:56] LABS: Basophils # (auto) 0 10 ^3/uL (0-0.2); Eosinophils # (auto) 0.1 10 ^3/uL (0-0.8); Hemoglobin 7.4 g/dL (12.2-16.2); Monocytes # (auto) 0.6 10 ^3/uL (0-1.3)
[2023-08-11 06:59] LABS: Basophils % (auto) 0.6 % (0.0-2.0); Eosinophils % (auto) 1.3 % (0.0-7.0); Mean Corpuscular Hgb Conc. 32.4 g/dL (32.0-36.0); Mean Corpuscular Volume 74.2 fL (80.0-100.0); Monocytes % (auto) 9.3 % (0.0-12.0); Neutrophils # (auto) 4.8 10 ^3/uL (1.6-8.6); Neutrophils % (auto) 73.8 % (37.0-80.0); Red Cell Distribution Width 17.1 % (11.8-14.3); White Blood Cell 6.5 10^3/uL (4.4-10.8)
[2023-08-11] MEDS ORDERED: SODIUM FERR GLUC 62.5MG/5ML 125 MG in SODIUM CHL 0.9% 100 ML IV ONE (07:45)
[2023-08-11] MEDS: FERROUS SULFATE 325mg EC TAB PO SCH ×2 (09:22→17:48)
[2023-08-11] MEDS: cefTRIAXone 1GM/50ML D5W 50 ML IV SCH (09:22)
[2023-08-11] MEDS: SERTRALINE HCL 50 MG TAB PO SCH (09:22)
[2023-08-11] MEDS: PANTOPRAZOLE 40 MG/10 ML VIAL INJ IV SCH (09:22)
[2023-08-11] MEDS: APIXABAN 2.5 MG TAB PO SCH (09:22)
[2023-08-11] MEDS: amLODIPine BESYLATE 5 MG TAB PO SCH (09:23)
[2023-08-11] MEDS: levETIRAcetam 500 MG TAB PO SCH ×2 (09:23→21:44)
[2023-08-11 10:19] VITALS: BP 121/43; PULSE 70; RESP 17; TEMP 98.3; O2SAT 96
[2023-08-11] MEDS ORDERED: GABA-1308 PO (10:34)
[2023-08-11] MEDS ORDERED: GOLYTELY 4L KIT PO ONE (11:15)
[2023-08-11 13:08] VITALS: BP 135/34; PULSE 65; RESP 17; TEMP 97.9; O2SAT 98
[2023-08-11 14:16] LABS: Hemoglobin 7.1 g/dL (12.2-16.2)
[2023-08-11 14:19] LABS: Hematocrit 21.8 % (36.0-46.0)
[2023-08-11 20:00] VITALS: PULSE 65; RESP 18; O2SAT 98
[2023-08-11 22:00] VITALS: BP 124/40; PULSE 74; RESP 18; TEMP 98.2; O2SAT 93
[2023-08-11] MEDS ORDERED: MAGNESIUM CITRATE SOLUTION 300 ML BTL PO ONE ×3 (22:15→23:00)
[2023-08-12 05:00] VITALS: BP 109/51; PULSE 77; RESP 16; TEMP 97.7; O2SAT 95
[2023-08-12] MEDS: METOCLOPRAMIDE HCL 5MG/ml INJ 2ml VIAL IV SCH ×2 (05:19→14:36)
[2023-08-12] MEDS ORDERED: MAGNESIUM CITRATE SOLUTION 300 ML BTL PO ONE ×3 (06:00)
[2023-08-12] MEDS: SUCRALFATE 1 GM/10 ML ORAL SUSP GT SCH (06:15)
[2023-08-12] MEDS: LEVOTHYROXINE SODIUM 25 MCG TAB PO SCH (06:15)
[2023-08-12] MEDS: ACCU-CHEK COMFORT CURVE STRIP VI SCH ×2 (06:15→11:42)
[2023-08-12] MEDS: InsuLIN REG 1unit/0.01ml Soln (100units/ml) SC SCH ×2 (06:17→11:30)
[2023-08-12 09:08] LABS: Chloride 109 mmol/L (98-107); Potassium 4.6 mmol/L (3.5-5.1); Sodium 140 mmol/L (136-145)
[2023-08-12 09:09] LABS: Anion Gap 9 (5-15); Calcium 9.1 mg/dL (8.5-10.1); Carbon Dioxide 22 mmol/L (20-30)
[2023-08-12 09:14] LABS: BUN/Creatinine Ratio 8.5 (10.0-20.0); Blood Urea Nitrogen 11 mg/dL (9-23); Glucose 159 mg/dL (74-106)
[2023-08-12 09:15] VITALS: BP 126/82; PULSE 89; RESP 18; TEMP 96.7; O2SAT 95
[2023-08-12 09:32] LABS: Basophils # (auto) 0.1 10 ^3/uL (0-0.2); Eosinophils # (auto) 0.2 10 ^3/uL (0-0.8); Hematocrit 25.2 % (36.0-46.0); Mean Corpuscular Hemoglobin 23.7 pg (28.0-32.0); Mean Corpuscular Hgb Conc. 31.7 g/dL (32.0-36.0); Nucleated Red Blood Cells % 0.1 %
[2023-08-12 09:35] LABS: Eosinophils % (auto) 2.6 % (0.0-7.0); Lymphocytes # (auto) 1.4 10 ^3/uL (0.4-5.4); Mean Corpuscular Volume 74.6 fL (80.0-100.0); Monocytes # (auto) 0.7 10 ^3/uL (0-1.3); Monocytes % (auto) 10.6 % (0.0-12.0); Neutrophils % (auto) 62.8 % (37.0-80.0); Red Blood Cells 3.38 10^6/uL (4.0-5.20); Red Cell Distribution Width 17.6 % (11.8-14.3); White Blood Cell 6.3 10^3/uL (4.4-10.8)
[2023-08-12] MEDS: SERTRALINE HCL 50 MG TAB PO SCH (09:40)
[2023-08-12] MEDS: FERROUS SULFATE 325mg EC TAB PO SCH (09:40)
[2023-08-12] MEDS: PANTOPRAZOLE 40 MG/10 ML VIAL INJ IV SCH (09:40)
[2023-08-12] MEDS: cefTRIAXone 1GM/50ML D5W 50 ML IV SCH (09:40)
[2023-08-12] MEDS: amLODIPine BESYLATE 5 MG TAB PO SCH (09:41)
[2023-08-12] MEDS: levETIRAcetam 500 MG TAB PO SCH (09:56)
[2023-08-12] MEDS ORDERED: IRON SUCROSE COMPLEX 200 MG in SODIUM CHL 0.9% 100 ML IV SCH (12:00)
[2023-08-12] MEDS ORDERED: SODIUM FERR GLUC 125 MG in NS 100 ML IV SCH (12:00)
[2023-08-12] MEDS ORDERED: SODIUM CHLORIDE LOCK 10 ML ONE (12:01)
[2023-08-12] MEDS ORDERED: diphenhdrAMINE HCL 50 MG/1 ML VL ONE (12:02)
[2023-08-12 12:24] VITALS: PULSE 86; RESP 14; O2SAT 100
[2023-08-12] MEDS ORDERED: FER325T PO (12:31)
[2023-08-12] MEDS ORDERED: METO-281 PO (12:31)
[2023-08-12] MEDS ORDERED: SUCR1SUS26 GT (12:31)
[2023-08-12] MEDS ORDERED: AMLO1TAB23 PO (12:33)
[2023-08-12] MEDS: MIDAZOLAM HCL 5 MG/ML-1ML VIAL ONE ×2 (12:34→12:39)
[2023-08-12] MEDS: fentaNYL CITRATE 100 MCG/2 ML VL ONE ×2 (12:34→12:39)
[2023-08-12] MEDS ORDERED: CAR125T OR (12:38)
[2023-08-12] MEDS ORDERED: PANT40TA2 PO (12:39)
[2023-08-12 13:03] VITALS: PULSE 79; RESP 11; O2SAT 100
[2023-08-12 14:36] VITALS: BP 137/59; PULSE 103; RESP 19; TEMP 97.6; O2SAT 96
[2023-08-12 15:35] VITALS: BP 126/82; TEMP 36.4
== END 2023-08-12 16:49 | disposition home or self-care (01) | DRG 392 ==
LOC: ER 11:36 → OVERFLOW 15:59 → CENTRAL 08-10 01:58
PROVIDERS: ADMIT Internal Medicine; ATTEND Internal Medicine
PROC: 0DB68ZX Excision of Stomach, Via Natural or Artificial Opening Endoscopic, Diagnostic (ICD-10-PCS; 2023-08-10)
PROC: 0DB68ZZ Excision of Stomach, Via Natural or Artificial Opening Endoscopic (ICD-10-PCS; 2023-08-10)
PROC: 0DB98ZX Excision of Duodenum, Via Natural or Artificial Opening Endoscopic, Diagnostic (ICD-10-PCS; principal; 2023-08-10 16:14)
PROC: 0DBN8ZZ Excision of Sigmoid Colon, Via Natural or Artificial Opening Endoscopic (ICD-10-PCS; 2023-08-12)
DX: K29.70 Gastritis, unspecified, without bleeding (principal); N39.0 Urinary tract infection, site not specified; E87.1 Hypo-osmolality and hyponatremia; I69.354 Hemiplegia and hemiparesis following cerebral infarction affecting left non-dominant side; E11.22 Type 2 diabetes mellitus with diabetic chronic kidney disease; N18.30 Chronic kidney disease, stage 3 unspecified; E03.9 Hypothyroidism, unspecified; I48.0 Paroxysmal atrial fibrillation; E11.21 Type 2 diabetes mellitus with diabetic nephropathy; D63.8 Anemia in other chronic diseases classified elsewhere; E11.43 Type 2 diabetes mellitus with diabetic autonomic (poly)neuropathy; E78.00 Pure hypercholesterolemia, unspecified; I12.9 Hypertensive chronic kidney disease with stage 1 through stage 4 chronic kidney disease, or unspecified chronic kidney disease; K31.7 Polyp of stomach and duodenum; K31.84 Gastroparesis; K63.5 Polyp of colon; K64.8 Other hemorrhoids; N18.9 Chronic kidney disease, unspecified; Z79.4 Long term (current) use of insulin; Z82.0 Family history of epilepsy and other diseases of the nervous system
CPT/HCPCS: 36415; 71045; 74176; 76705; 78226; 80048; 80053; 81001; 82306; 82607; 82728; 82746; 82962; 83036; 83540; 83550; 83605; 83615; 83690; 84443; 85014; 85018; 85025; 85045; 85610; 85730; 86850; 86900; 86901; 87086; 87088; 87186; 93005; 96365; 97163; C9113; G0378; J0696; J1815; J2250

== ENCOUNTER 2023-08-21 08:56 | Inpatient (IN) | payer OTHER ==
[~2023-08-21] VITALS: Ht 152.4 cm; Wt 60.7 kg
[~2023-08-21 08:56] MED LIST changes: -ALEN35TA18 PO; -AML5T PO; +AMLO1TAB23 PO; -APIX5TAB PO; +CAR125T OR; +FER325T PO; +GABA-1308 PO; -HYDR-4902 PO; +METO-281 PO; -METO-6 PO; +PANT40TA2 PO; +SUCR1SUS26 GT
[2023-08-21 09:59] LABS: Alanine Aminotransferase 121 U/L (7-40); Albumin 3.9 g/dL (3.2-4.8); Alkaline Phosphatase 162 U/L (46-116); Anion Gap 8 (5-15); Aspartate Aminotransferase 72 U/L (13-40); BUN/Creatinine Ratio 17.6 (10.0-20.0); Blood Urea Nitrogen 23 mg/dL (9-23); Calcium 8.8 mg/dL (8.5-10.1); Carbon Dioxide 21 mmol/L (20-30); Chloride 109 mmol/L (98-107); Glucose 185 mg/dL (74-106); Potassium 5.1 mmol/L (3.5-5.1); Sodium 138 mmol/L (136-145)
[2023-08-21 10:00] LABS: Bilirubin, Total 0.4 mg/dL (0.2-1.0); Total Protein 6.1 g/dL (5.7-8.2)
[2023-08-21 10:21] LABS: Basophils # (auto) 0.1 10 ^3/uL (0-0.2); Eosinophils # (auto) 0 10 ^3/uL (0-0.8); Lymphocytes # (auto) 0.7 10 ^3/uL (0.4-5.4); Monocytes # (auto) 0.8 10 ^3/uL (0-1.3)
[2023-08-21 10:23] LABS: Basophils % (auto) 0.7 % (0.0-2.0); Eosinophils % (auto) 0.3 % (0.0-7.0); Hematocrit 21.5 % (36.0-46.0); Hemoglobin 7.1 g/dL (12.2-16.2); Mean Corpuscular Hemoglobin 25.1 pg (28.0-32.0); Mean Corpuscular Hgb Conc. 32.9 g/dL (32.0-36.0); Mean Corpuscular Volume 76.1 fL (80.0-100.0); Neutrophils # (auto) 9.4 10 ^3/uL (1.6-8.6); Red Blood Cells 2.83 10^6/uL (4.0-5.20); Red Cell Distribution Width 19.2 % (11.8-14.3)
[2023-08-21 10:51] LABS: INR 1.14 (0.9-1.15); Prothrombin Time 11.9 sec (9.3-11.8)
[2023-08-21] MEDS ORDERED: SODIUM CHLORIDE 0.9% 1,000 ML IV SCH (17:00)
[2023-08-21] MEDS ORDERED: AZITHROMYCIN 500MG/ 250ML 250 ML IV ONE (17:00)
[2023-08-21] MEDS ORDERED: ALBUTEROL SULF 2.5 MG/0.5ML(0.5%) NEB SOLN NEB PRN (17:00)
[2023-08-21] MEDS ORDERED: DEXTROSE (50%) 50ML SYRG IV PRN (17:00)
[2023-08-21] MEDS ORDERED: MORPHINE SULFATE INJ 2 MG/ml SYRG IV PRN (17:00)
[2023-08-21] MEDS ORDERED: NITROGLYCERIN 0.4 MG SL TAB SL PRN (17:00)
[2023-08-21] MEDS ORDERED: cefTRIAXone 1GM/50ML D5W 50 ML IV ONE (17:00)
[2023-08-21] MEDS ORDERED: SODIUM FERR GLUC 62.5MG/5ML 125 MG in SODIUM CHL 0.9% 100 ML IV SCH (17:25)
[2023-08-21 17:51] VITALS: BP 134/75; PULSE 63; RESP 16; O2SAT 94
[2023-08-21 18:50] VITALS: PULSE 63; RESP 20; O2SAT 95
[2023-08-21 18:58] VITALS: PULSE 61; RESP 20; O2SAT 99
[2023-08-21] MEDS: ACCU-CHEK COMFORT CURVE STRIP VI SCH ×2 (18:58→21:54)
[2023-08-21] MEDS: ALBUTEROL SULF 2.5 MG/0.5ML(0.5%) NEB SOLN NEB SCH ×2 (19:34→22:23)
[2023-08-21] MEDS: IPRATROPIUM BROM 0.5 MG/2.5ML INH SOL NEB SCH ×2 (19:34→22:23)
[2023-08-21] MEDS: InsuLIN REG 1unit/0.01ml Soln (100units/ml) SC SCH ×2 (21:06→21:58)
[2023-08-21] MEDS: ACETAMINOPHEN 325 MG TAB PO PRN (21:11)
[2023-08-21] MEDS: SUCRALFATE 1 GM/10 ML ORAL SUSP GT SCH (21:31)
[2023-08-21] MEDS: levETIRAcetam 500 MG TAB PO SCH (21:49)
[2023-08-21] MEDS: GABAPENTIN 100 MG CAP PO SCH (21:49)
[2023-08-21] MEDS: METOCLOPRAMIDE HCL 10 MG TAB PO SCH (21:49)
[2023-08-21] MEDS ORDERED: CARVEDILOL 12.5 MG TAB PO SCH (22:00)
[2023-08-21] MEDS ORDERED: FERROUS SULFATE 325mg EC TAB PO SCH (22:00)
[2023-08-21 22:16] VITALS: PULSE 57; RESP 20; O2SAT 94
[2023-08-21 22:24] VITALS: PULSE 62; RESP 20; O2SAT 98
[2023-08-22] VITALS (23 sets, daily range): BP systolic 106–142; BP diastolic 38–51; PULSE 49–70; RESP 15–20; TEMP 97.5–98.4; O2SAT 89–99
[2023-08-22 01:01] LABS: COVID19 ANTIGEN SOFIA FIA NEGATIVE (NEGATIVE); Rapid Influenza A Negative (Negative); Rapid Influenza B Negative (Negative)
[2023-08-22] MEDS: IPRATROPIUM BROM 0.5 MG/2.5ML INH SOL NEB SCH ×7 (03:18→21:52)
[2023-08-22] MEDS: ALBUTEROL SULF 2.5 MG/0.5ML(0.5%) NEB SOLN NEB SCH ×7 (03:18→21:52)
[2023-08-22] MEDS: ACCU-CHEK COMFORT CURVE STRIP VI SCH ×4 (05:56→22:58)
[2023-08-22] MEDS: InsuLIN REG 1unit/0.01ml Soln (100units/ml) SC SCH ×4 (05:56→22:00)
[2023-08-22] MEDS: LEVOTHYROXINE SODIUM 25 MCG TAB PO SCH (06:12)
[2023-08-22] MEDS: SUCRALFATE 1 GM/10 ML ORAL SUSP GT SCH ×2 (06:12→18:43)
[2023-08-22 06:55] LABS: Alanine Aminotransferase 74 U/L (7-40); Albumin 3.6 g/dL (3.2-4.8); Alkaline Phosphatase 120 U/L (46-116); Anion Gap 8 (5-15); Aspartate Aminotransferase 25 U/L (13-40); BUN/Creatinine Ratio 11.9 (10.0-20.0); Bilirubin, Total 0.2 mg/dL (0.2-1.0); Blood Urea Nitrogen 17 mg/dL (9-23); Calcium 8.4 mg/dL (8.5-10.1); Carbon Dioxide 20 mmol/L (20-30); Chloride 109 mmol/L (98-107); Glucose 125 mg/dL (74-106); Potassium 4.7 mmol/L (3.5-5.1); Sodium 137 mmol/L (136-145); Total Protein 5.9 g/dL (5.7-8.2)
[2023-08-22 07:02] LABS: Basophils # (auto) 0.1 10 ^3/uL (0-0.2); Hematocrit 20.4 % (36.0-46.0); Lymphocytes # (auto) 1.1 10 ^3/uL (0.4-5.4); Lymphocytes % (auto) 10.6 % (10.0-50.0); Mean Corpuscular Hgb Conc. 31.8 g/dL (32.0-36.0)
[2023-08-22 07:08] LABS: Basophils % (auto) 0.6 % (0.0-2.0); Eosinophils # (auto) 0.2 10 ^3/uL (0-0.8); Eosinophils % (auto) 1.5 % (0.0-7.0); Mean Corpuscular Hemoglobin 25.2 pg (28.0-32.0); Mean Corpuscular Volume 79.2 fL (80.0-100.0); Monocytes % (auto) 9.7 % (0.0-12.0); Neutrophils % (auto) 77.6 % (37.0-80.0); Nucleated Red Blood Cells % 0.1 %; Red Blood Cells 2.58 10^6/uL (4.0-5.20); Red Cell Distribution Width 19.7 % (11.8-14.3); White Blood Cell 10.3 10^3/uL (4.4-10.8)
[2023-08-22 07:19] LABS: Hemoglobin 6.5 g/dL (12.2-16.2)
[2023-08-22 09:18] LABS: Hepatitis B Surface Antigen Negative (Negative)
[2023-08-22 09:40] LABS: Hepatitis A Ab IgM Negative
[2023-08-22 09:41] LABS: Hepatitis B Core IgM Negative; Hepatitis C Antibody Negative (Negative)
[2023-08-22] MEDS ORDERED: FUROSEMIDE 20 MG TAB PO SCH (10:00)
[2023-08-22] MEDS ORDERED: AZITHROMYCIN 500MG/ 250ML 250 ML IV SCH (10:00)
[2023-08-22] MEDS: FUROSEMIDE 20 MG/2 ML VIAL IV SCH (10:00)
[2023-08-22] MEDS ORDERED: FUROSEMIDE 20 MG/2 ML VIAL IV ONE (10:00)
[2023-08-22] MEDS ORDERED: PANTOPRAZOLE 40 MG TAB PO SCH (10:00)
[2023-08-22] MEDS ORDERED: PANTOPRAZOLE 40 MG/10 ML VIAL INJ IV ONE (10:00)
[2023-08-22] MEDS ORDERED: POTASSIUM CHL 10 Meq TABLET PO SCH (10:00)
[2023-08-22] MEDS: PANTOPRAZOLE 40 MG/10 ML VIAL INJ IV SCH (10:00)
[2023-08-22] MEDS: cefTRIAXone 1GM/50ML D5W 50 ML IV SCH (10:09)
[2023-08-22] MEDS: METOCLOPRAMIDE HCL 10 MG TAB PO SCH ×2 (10:10→22:55)
[2023-08-22] MEDS: levETIRAcetam 500 MG TAB PO SCH ×2 (10:10→22:56)
[2023-08-22] MEDS: SERTRALINE HCL 50 MG TAB PO SCH (10:11)
[2023-08-22] MEDS: amLODIPine BESYLATE 5 MG TAB PO SCH (10:11)
[2023-08-22] MEDS ORDERED: MORPHINE SULFATE INJ 2 MG/ml SYRG IV PRN (10:15)
[2023-08-22] MEDS ORDERED: HYDROcodone-ACET 5/325MG TAB PO PRN (10:15)
[2023-08-22] MEDS ORDERED: IRON SUCROSE COMPLEX 200 MG in SODIUM CHL 0.9% 100 ML IV SCH (12:00)
[2023-08-22] MEDS: CARVEDILOL 3.125 MG TAB PO SCH ×2 (12:25→22:00)
[2023-08-22] MEDS ORDERED: ALEN35TA18 PO (14:03)
[2023-08-22] MEDS ORDERED: CHOL20007 PO (14:04)
[2023-08-22 15:23] LABS: Urine Amorphous Crystal FEW /hpf (None Seen); Urine Bacteria FEW /hpf (None Seen); Urine Blood Negative /uL (Negative); Urine Clarity Clear (Clear); Urine Color Colorless (Yellow); Urine Hyaline Cast FEW /lpf (0 - 2); Urine Protein, UAD TRACE (Negative); Urine Specific Gravity 1.015 (1.001-1.035); Urine Urobilinogen Normal (Negative); Urine WBC 1 /hpf (0 - 5)
[2023-08-22] MEDS: SODIUM FERR GLUC 62.5MG/5ML 125 MG in SODIUM CHL 0.9% 100 ML IV SCH (18:43)
[2023-08-22] MEDS: ATORVASTATIN 20 MG TAB PO SCH (22:55)
[2023-08-22] MEDS: GABAPENTIN 100 MG CAP PO SCH (22:56)
[2023-08-23] VITALS (17 sets, daily range): BP systolic 101–145; BP diastolic 45–62; PULSE 43–112; RESP 16–62; TEMP 97.8–99.3; O2SAT 89–100
[2023-08-23] MEDS: IPRATROPIUM BROM 0.5 MG/2.5ML INH SOL NEB SCH ×6 (02:05→23:27)
[2023-08-23] MEDS: ALBUTEROL SULF 2.5 MG/0.5ML(0.5%) NEB SOLN NEB SCH ×6 (02:05→23:27)
[2023-08-23 06:19] LABS: Basophils # (auto) 0.1 10 ^3/uL (0-0.2); Eosinophils # (auto) 0.4 10 ^3/uL (0-0.8); Eosinophils % (auto) 3.3 % (0.0-7.0); Hemoglobin 8.4 g/dL (12.2-16.2); Lymphocytes # (auto) 1.4 10 ^3/uL (0.4-5.4); Neutrophils % (auto) 74.5 % (37.0-80.0)
[2023-08-23 06:23] LABS: Basophils % (auto) 0.7 % (0.0-2.0); Hematocrit 25.8 % (36.0-46.0); Lymphocytes % (auto) 12.6 % (10.0-50.0); Mean Corpuscular Hemoglobin 25.8 pg (28.0-32.0); Mean Corpuscular Hgb Conc. 32.6 g/dL (32.0-36.0); Mean Corpuscular Volume 78.9 fL (80.0-100.0); Monocytes % (auto) 8.9 % (0.0-12.0); Neutrophils # (auto) 8.3 10 ^3/uL (1.6-8.6); Nucleated Red Blood Cells % 0.1 %; Red Blood Cells 3.26 10^6/uL (4.0-5.20); White Blood Cell 11.1 10^3/uL (4.4-10.8)
[2023-08-23 06:30] LABS: Red Cell Distribution Width 20.2 % (11.8-14.3)
[2023-08-23] MEDS: SUCRALFATE 1 GM/10 ML ORAL SUSP GT SCH ×2 (06:32→17:35)
[2023-08-23] MEDS: LEVOTHYROXINE SODIUM 25 MCG TAB PO SCH (06:33)
[2023-08-23] MEDS: ACCU-CHEK COMFORT CURVE STRIP VI SCH ×4 (06:33→21:28)
[2023-08-23] MEDS: InsuLIN REG 1unit/0.01ml Soln (100units/ml) SC SCH ×4 (06:40→21:31)
[2023-08-23 06:47] LABS: Chloride 104 mmol/L (98-107); Potassium 4.1 mmol/L (3.5-5.1)
[2023-08-23 06:48] LABS: Anion Gap 5 (5-15); Carbon Dioxide 19 mmol/L (20-30)
[2023-08-23 06:49] LABS: Calcium 8.1 mg/dL (8.7-10.4)
[2023-08-23 06:53] LABS: Blood Urea Nitrogen 22 mg/dL (9-23); Glucose 60 mg/dL (74-106)
[2023-08-23 06:56] LABS: Sodium 128 mmol/L (136-145)
[2023-08-23] MEDS: cefTRIAXone 1GM/50ML D5W 50 ML IV SCH (09:06)
[2023-08-23] MEDS: PANTOPRAZOLE 40 MG/10 ML VIAL INJ IV SCH (09:09)
[2023-08-23] MEDS: ACETAMINOPHEN 325 MG TAB PO PRN (09:16)
[2023-08-23] MEDS: levETIRAcetam 500 MG TAB PO SCH ×2 (09:17→21:27)
[2023-08-23] MEDS: amLODIPine BESYLATE 5 MG TAB PO SCH (09:17)
[2023-08-23] MEDS: SERTRALINE HCL 50 MG TAB PO SCH (09:18)
[2023-08-23] MEDS: METOCLOPRAMIDE HCL 10 MG TAB PO SCH ×2 (09:18→21:22)
[2023-08-23] MEDS: CARVEDILOL 3.125 MG TAB PO SCH ×3 (09:19→21:27)
[2023-08-23] MEDS: FUROSEMIDE 20 MG/2 ML VIAL IV SCH (09:19)
[2023-08-23] MEDS ORDERED: FUROSEMIDE 20 MG/2 ML VIAL IV ONE (09:30)
[2023-08-23] MEDS ORDERED: LACTULOSE 20Gm/30ML SOLN PO SCH (10:00)
[2023-08-23] MEDS ORDERED: AZITHROMYCIN 250 MG TAB PO SCH (10:00)
[2023-08-23] MEDS: PANTOPRAZOLE 40 MG TAB PO SCH (10:00)
[2023-08-23] MEDS: SPIRONOLACTONE 25 MG TAB PO SCH (11:49)
[2023-08-23] MEDS ORDERED: AZITHROMYCIN 500MG/ 250ML 250 ML IV ONE (12:15)
[2023-08-23] MEDS: SODIUM FERR GLUC 62.5MG/5ML 125 MG in SODIUM CHL 0.9% 100 ML IV SCH (14:38)
[2023-08-23 15:02] LABS: Basophils # (auto) 0.1 10 ^3/uL (0-0.2); Eosinophils # (auto) 0.3 10 ^3/uL (0-0.8); Eosinophils % (auto) 3.1 % (0.0-7.0); Hemoglobin 8.8 g/dL (12.2-16.2); Mean Corpuscular Volume 81.8 fL (80.0-100.0); Monocytes # (auto) 0.7 10 ^3/uL (0-1.3); Nucleated Red Blood Cells % 0.2 %
[2023-08-23 15:05] LABS: Basophils % (auto) 0.5 % (0.0-2.0); Hematocrit 28.2 % (36.0-46.0); Lymphocytes # (auto) 1.1 10 ^3/uL (0.4-5.4); Lymphocytes % (auto) 10.4 % (10.0-50.0); Mean Corpuscular Hemoglobin 25.5 pg (28.0-32.0); Mean Corpuscular Hgb Conc. 31.2 g/dL (32.0-36.0); Monocytes % (auto) 6.9 % (0.0-12.0); Neutrophils # (auto) 8.3 10 ^3/uL (1.6-8.6); Neutrophils % (auto) 79.1 % (37.0-80.0); Red Blood Cells 3.45 10^6/uL (4.0-5.20); White Blood Cell 10.4 10^3/uL (4.4-10.8)
[2023-08-23 15:06] LABS: Red Cell Distribution Width 20.3 % (11.8-14.3)
[2023-08-23 15:22] LABS: Alanine Aminotransferase 81 U/L (7-40); Albumin 3.8 g/dL (3.2-4.8); Alkaline Phosphatase 159 U/L (46-116); Anion Gap 9 (5-15); Aspartate Aminotransferase 36 U/L (13-40); BUN/Creatinine Ratio 11.7 (10.0-20.0); Bilirubin, Total 0.4 mg/dL (0.2-1.0); Blood Urea Nitrogen 19 mg/dL (9-23); Calcium 8.2 mg/dL (8.7-10.4); Carbon Dioxide 18 mmol/L (20-30); Chloride 105 mmol/L (98-107); Glucose 209 mg/dL (74-106); Magnesium 2.2 mg/dL (1.6-2.6); Potassium 4.7 mmol/L (3.5-5.1); Sodium 132 mmol/L (136-145); Total Protein 6.3 g/dL (5.7-8.2)
[2023-08-23] MEDS: ATORVASTATIN 20 MG TAB PO SCH (21:24)
[2023-08-23] MEDS: GABAPENTIN 100 MG CAP PO SCH (21:24)
[2023-08-24] VITALS (19 sets, daily range): BP systolic 114–145; BP diastolic 48–100; PULSE 57–100; RESP 16–20; TEMP 97.3–98.6; O2SAT 91–100
[2023-08-24] MEDS: ALBUTEROL SULF 2.5 MG/0.5ML(0.5%) NEB SOLN NEB SCH ×6 (02:12→22:13)
[2023-08-24] MEDS: IPRATROPIUM BROM 0.5 MG/2.5ML INH SOL NEB SCH ×6 (02:12→22:13)
[2023-08-24 05:40] LABS: Eosinophils # (auto) 0.4 10 ^3/uL (0-0.8); Mean Corpuscular Hemoglobin 26.5 pg (28.0-32.0); Monocytes # (auto) 0.9 10 ^3/uL (0-1.3); Neutrophils # (auto) 7.6 10 ^3/uL (1.6-8.6); Nucleated Red Blood Cells % 0.1 %
[2023-08-24 05:42] LABS: Basophils # (auto) 0 10 ^3/uL (0-0.2); Basophils % (auto) 0.4 % (0.0-2.0); Eosinophils % (auto) 3.9 % (0.0-7.0); Hemoglobin 8.8 g/dL (12.2-16.2); Lymphocytes # (auto) 1.2 10 ^3/uL (0.4-5.4); Lymphocytes % (auto) 11.5 % (10.0-50.0); Mean Corpuscular Hgb Conc. 32.7 g/dL (32.0-36.0); Monocytes % (auto) 8.5 % (0.0-12.0); Neutrophils % (auto) 75.7 % (37.0-80.0); Red Blood Cells 3.33 10^6/uL (4.0-5.20)
[2023-08-24 05:44] LABS: Red Cell Distribution Width 20.5 % (11.8-14.3)
[2023-08-24 05:59] LABS: Chloride 105 mmol/L (98-107); Potassium 4.5 mmol/L (3.5-5.1); Sodium 133 mmol/L (136-145)
[2023-08-24 06:01] LABS: Anion Gap 9 (5-15); Carbon Dioxide 19 mmol/L (20-30)
[2023-08-24 06:02] LABS: Calcium 8.1 mg/dL (8.7-10.4)
[2023-08-24 06:04] LABS: Blood Urea Nitrogen 22 mg/dL (9-23)
[2023-08-24 06:06] LABS: BUN/Creatinine Ratio 13.5 (10.0-20.0); Glucose 84 mg/dL (74-106)
[2023-08-24 06:07] LABS: Magnesium 2.2 mg/dL (1.6-2.6)
[2023-08-24] MEDS: SUCRALFATE 1 GM/10 ML ORAL SUSP GT SCH ×2 (06:37→17:46)
[2023-08-24] MEDS: LEVOTHYROXINE SODIUM 25 MCG TAB PO SCH (06:37)
[2023-08-24] MEDS: ACCU-CHEK COMFORT CURVE STRIP VI SCH ×4 (06:39→21:59)
[2023-08-24] MEDS: InsuLIN REG 1unit/0.01ml Soln (100units/ml) SC SCH ×4 (06:39→22:03)
[2023-08-24] MEDS: cefTRIAXone 1GM/50ML D5W 50 ML IV SCH (08:41)
[2023-08-24 10:07] LABS: Albumin 2.7 g/dL (2.9-4.4); Alpha-1-Globulin 0.4 g/dL (0.0-0.4); Alpha-2-Globulin 0.9 g/dL (0.4-1.0); Gamma Globulin 0.9 g/dL (0.4-1.8); Protein Total Serum 5.7 g/dL (6.0-8.5)
[2023-08-24] MEDS: METOCLOPRAMIDE HCL 10 MG TAB PO SCH ×2 (10:33→21:57)
[2023-08-24] MEDS: SPIRONOLACTONE 25 MG TAB PO SCH (10:33)
[2023-08-24] MEDS: FUROSEMIDE 20 MG/2 ML VIAL IV SCH (10:33)
[2023-08-24] MEDS: AZITHROMYCIN 250 MG TAB PO SCH (10:34)
[2023-08-24] MEDS: amLODIPine BESYLATE 5 MG TAB PO SCH (10:34)
[2023-08-24] MEDS: PANTOPRAZOLE 40 MG TAB PO SCH (10:35)
[2023-08-24] MEDS: SERTRALINE HCL 50 MG TAB PO SCH (10:35)
[2023-08-24] MEDS: levETIRAcetam 500 MG TAB PO SCH ×2 (10:35→21:57)
[2023-08-24] MEDS: FERROUS SULFATE 325mg EC TAB PO SCH (14:55)
[2023-08-24] MEDS: ATORVASTATIN 20 MG TAB PO SCH (21:55)
[2023-08-24] MEDS: GABAPENTIN 100 MG CAP PO SCH (21:56)
[2023-08-25] VITALS (10 sets, daily range): BP systolic 107–138; BP diastolic 65–68; PULSE 54–83; RESP 16–20; TEMP 97.6–97.9; O2SAT 94–100
[2023-08-25] MEDS: IPRATROPIUM BROM 0.5 MG/2.5ML INH SOL NEB SCH ×3 (02:06→09:50)
[2023-08-25] MEDS: ALBUTEROL SULF 2.5 MG/0.5ML(0.5%) NEB SOLN NEB SCH ×3 (02:07→09:50)
[2023-08-25] MEDS: SUCRALFATE 1 GM/10 ML ORAL SUSP GT SCH (06:10)
[2023-08-25] MEDS: InsuLIN REG 1unit/0.01ml Soln (100units/ml) SC SCH ×2 (06:10→11:37)
[2023-08-25] MEDS: LEVOTHYROXINE SODIUM 25 MCG TAB PO SCH (06:10)
[2023-08-25] MEDS: ACCU-CHEK COMFORT CURVE STRIP VI SCH ×2 (06:10→11:36)
[2023-08-25 09:46] LABS: Base Excess -6.2 mmol/L (-2.0-2.0)
[2023-08-25] MEDS ORDERED: AZIT-43 PO (09:46)
[2023-08-25] MEDS ORDERED: FURO1TAB31 PO (09:46)
[2023-08-25] MEDS ORDERED: FUROSEMIDE 40 MG TAB PO ONE (10:00)
[2023-08-25] MEDS: FERROUS SULFATE 325mg EC TAB PO SCH (10:56)
[2023-08-25] MEDS: SPIRONOLACTONE 25 MG TAB PO SCH (10:56)
[2023-08-25] MEDS: METOCLOPRAMIDE HCL 10 MG TAB PO SCH (10:56)
[2023-08-25] MEDS: SERTRALINE HCL 50 MG TAB PO SCH (10:57)
[2023-08-25] MEDS: PANTOPRAZOLE 40 MG TAB PO SCH (10:57)
[2023-08-25] MEDS: AZITHROMYCIN 250 MG TAB PO SCH (10:57)
[2023-08-25] MEDS: levETIRAcetam 500 MG TAB PO SCH (10:57)
[2023-08-25] MEDS: amLODIPine BESYLATE 5 MG TAB PO SCH (10:58)
== END 2023-08-25 14:05 | disposition home or self-care (01) | DRG 871 ==
LOC: ER 08:56 → TELE 16:51 → TELE-CENTR 16:51
PROVIDERS: ADMIT Nurse Practitioner Family; ATTEND Internal Medicine
PROC: 30233N1 Transfusion of Nonautologous Red Blood Cells into Peripheral Vein, Percutaneous Approach (ICD-10-PCS; principal; 2023-08-22)
DX: A41.9 Sepsis, unspecified organism (principal); I50.43 Acute on chronic combined systolic (congestive) and diastolic (congestive) heart failure; J18.9 Pneumonia, unspecified organism; K92.2 Gastrointestinal hemorrhage, unspecified; I69.354 Hemiplegia and hemiparesis following cerebral infarction affecting left non-dominant side; I13.0 Hypertensive heart and chronic kidney disease with heart failure and stage 1 through stage 4 chronic kidney disease, or unspecified chronic kidney disease; E87.1 Hypo-osmolality and hyponatremia; Z79.4 Long term (current) use of insulin; R56.9 Unspecified convulsions; F32.A Depression, unspecified; R74.01 Elevation of levels of liver transaminase levels; D50.9 Iron deficiency anemia, unspecified; Z20.822 Contact with and (suspected) exposure to COVID-19; N18.30 Chronic kidney disease, stage 3 unspecified; E11.22 Type 2 diabetes mellitus with diabetic chronic kidney disease; I48.91 Unspecified atrial fibrillation; R00.1 Bradycardia, unspecified; Z79.82 Long term (current) use of aspirin; Z79.899 Other long term (current) drug therapy; Z82.0 Family history of epilepsy and other diseases of the nervous system
CPT/HCPCS: 36415; 36600; 71045; 74176; 76705; 80048; 80053; 80074; 81001; 82805; 82962; 83615; 83690; 83735; 83880; 84155; 84165; 84484; 85025; 85045; 85610; 86850; 86880; 86900; 86901; 86920; 87426; 87804; 93005; 94640; 97110; 97116; 97163; 97530; C9113; G0378; J1815

== ENCOUNTER → 2023-08-31 | Outpatient (CLI) | payer OTHER ==
[~2023-08-31] MED LIST changes: +ALEN35TA18 PO; +AZIT-43 PO; +CHOL20007 PO; +FURO1TAB31 PO
[2023-08-31 09:56] LABS: Basophils # (auto) 0.1 10 ^3/uL (0-0.2); Basophils % (auto) 1.2 % (0.0-2.0); Eosinophils # (auto) 0.3 10 ^3/uL (0-0.8); Eosinophils % (auto) 5.1 % (0.0-7.0); Hematocrit 32.8 % (36.0-46.0); Hemoglobin 10.6 g/dL (12.2-16.2); Lymphocytes # (auto) 1.3 10 ^3/uL (0.4-5.4); Lymphocytes % (auto) 23.2 % (10.0-50.0); Mean Corpuscular Hemoglobin 26.1 pg (28.0-32.0); Mean Corpuscular Hgb Conc. 32.4 g/dL (32.0-36.0); Mean Corpuscular Volume 80.4 fL (80.0-100.0); Monocytes # (auto) 0.4 10 ^3/uL (0-1.3); Monocytes % (auto) 7.6 % (0.0-12.0); Neutrophils # (auto) 3.6 10 ^3/uL (1.6-8.6); Neutrophils % (auto) 62.9 % (37.0-80.0); Nucleated Red Blood Cells % 0.1 %; Red Blood Cells 4.09 10^6/uL (4.0-5.20); Red Cell Distribution Width 20.5 % (11.8-14.3); White Blood Cell 5.7 10^3/uL (4.4-10.8)
[2023-08-31 10:47] LABS: Alanine Aminotransferase 26 U/L (7-40); Albumin 4.3 g/dL (3.2-4.8); Alkaline Phosphatase 102 U/L (46-116); Anion Gap 7 (5-15); Aspartate Aminotransferase 17 U/L (13-40); Bilirubin, Total 0.4 mg/dL (0.2-1.0); Blood Urea Nitrogen 34 mg/dL (9-23); Calcium 9.3 mg/dL (8.7-10.4); Carbon Dioxide 27 mmol/L (20-30); Chloride 103 mmol/L (98-107); Magnesium 1.7 mg/dL (1.6-2.6); Potassium 4.4 mmol/L (3.5-5.1); Sodium 137 mmol/L (136-145); Uric Acid 10.2 mg/dL (3.1-7.8)
[2023-08-31 11:05] LABS: Glucose 114 mg/dL (74-106)
[2023-08-31 12:26] LABS: Creatinine, Urine 63.99 mg/dL (30.0-125.0)
== END | disposition home or self-care (01) ==
LOC: LAB 09:35
PROVIDERS: ATTEND Internal Medicine Nephrology
DX: E11.22 Type 2 diabetes mellitus with diabetic chronic kidney disease (principal); N18.31 Chronic kidney disease, stage 3a; R80.9 Proteinuria, unspecified; M10.9 Gout, unspecified; D63.1 Anemia in chronic kidney disease; E21.3 Hyperparathyroidism, unspecified; E61.2 Magnesium deficiency
CPT/HCPCS: 36415; 80053; 82043; 82306; 82570; 83036; 83735; 83970; 84100; 84550; 85025

== ENCOUNTER 2023-09-13 11:04 | Emergency (ER) | payer OTHER ==
[~2023-09-13] VITALS: Ht 152.4 cm; Wt 53.8 kg
[2023-09-13 11:38] LABS: Basophils # (auto) 0.1 10 ^3/uL (0-0.2); Hemoglobin 11.2 g/dL (12.2-16.2); Mean Corpuscular Hemoglobin 25.7 pg (28.0-32.0); Mean Corpuscular Volume 79.7 fL (80.0-100.0); Monocytes # (auto) 0.5 10 ^3/uL (0-1.3); Neutrophils # (auto) 3.2 10 ^3/uL (1.6-8.6)
[2023-09-13] MEDS ORDERED: PANT40TA2 PO (11:38)
[2023-09-13 11:39] LABS: Basophils % (auto) 1.2 % (0.0-2.0); Eosinophils # (auto) 0.3 10 ^3/uL (0-0.8); Eosinophils % (auto) 4.7 % (0.0-7.0); Hematocrit 34.7 % (36.0-46.0); Lymphocytes # (auto) 1.5 10 ^3/uL (0.4-5.4); Lymphocytes % (auto) 26.8 % (10.0-50.0); Mean Corpuscular Hgb Conc. 32.3 g/dL (32.0-36.0); Monocytes % (auto) 9.1 % (0.0-12.0); Neutrophils % (auto) 58.2 % (37.0-80.0); Nucleated Red Blood Cells % 0.1 %; Red Blood Cells 4.36 10^6/uL (4.0-5.20); White Blood Cell 5.5 10^3/uL (4.4-10.8)
[2023-09-13] MEDS ORDERED: MAALOX PLUS or MAALOX 30 ML PO ONE (11:45)
[2023-09-13] MEDS ORDERED: DONNATAL 5ml ORAL Elix (BELLADONNA ALK-PHENOBARB) PO ONE (11:45)
[2023-09-13] MEDS ORDERED: LIDOCAINE VISCOUS 2% 15ML UD PO ONE (11:45)
[2023-09-13 11:47] LABS: Chloride 102 mmol/L (98-107); Potassium 4.2 mmol/L (3.5-5.1); Sodium 141 mmol/L (136-145)
[2023-09-13 11:48] LABS: Anion Gap 8 (5-15); Carbon Dioxide 31 mmol/L (20-30)
[2023-09-13 11:49] LABS: Calcium 9.7 mg/dL (8.5-10.1)
[2023-09-13 11:53] LABS: BUN/Creatinine Ratio 21.8 (10.0-20.0); Blood Urea Nitrogen 41 mg/dL (9-23); Glucose 163 mg/dL (74-106)
[2023-09-13 12:09] LABS: Urine Bacteria FEW /hpf (None Seen); Urine Blood Negative /uL (Negative); Urine Clarity Clear (Clear); Urine Color Colorless (Yellow); Urine Hyaline Cast FEW /lpf (0 - 2); Urine Protein, UAD Negative (Negative); Urine Specific Gravity 1.011 (1.001-1.035); Urine Urobilinogen Normal (Negative); Urine WBC 1 /hpf (0 - 5); Urine pH 5.5 (5.0-8.0)
[2023-09-13 12:14] VITALS: BP 117/57; PULSE 66; RESP 18; TEMP 97.7; O2SAT 95
== END 2023-09-13 13:59 | disposition home or self-care (01) ==
LOC: ER 11:04
DX: K29.00 Acute gastritis without bleeding (principal); I11.0 Hypertensive heart disease with heart failure; I50.9 Heart failure, unspecified; F32.9 Major depressive disorder, single episode, unspecified; E11.9 Type 2 diabetes mellitus without complications; E78.5 Hyperlipidemia, unspecified; Z86.2 Personal history of diseases of the blood and blood-forming organs and certain disorders involving the immune mechanism; Z98.890 Other specified postprocedural states; Z79.899 Other long term (current) drug therapy
CPT/HCPCS: 36415; 74018; 80048; 81001; 85025; 93005

== ENCOUNTER 2023-09-25 11:08 | Emergency (ER) | payer OTHER ==
[~2023-09-25] VITALS: Ht 152.4 cm; Wt 68.1 kg
[2023-09-25 12:06] LABS: Basophils # (auto) 0.1 10 ^3/uL (0-0.2); Eosinophils # (auto) 0.2 10 ^3/uL (0-0.8); Eosinophils % (auto) 4.5 % (0.0-7.0); Lymphocytes # (auto) 1.5 10 ^3/uL (0.4-5.4); Neutrophils # (auto) 3.1 10 ^3/uL (1.6-8.6); Red Blood Cells 3.77 10^6/uL (4.0-5.20); White Blood Cell 5.3 10^3/uL (4.4-10.8)
[2023-09-25 12:09] LABS: Basophils % (auto) 1.1 % (0.0-2.0); Hematocrit 30.1 % (36.0-46.0); Hemoglobin 9.8 g/dL (12.2-16.2); Lymphocytes % (auto) 28.1 % (10.0-50.0); Mean Corpuscular Hemoglobin 26.1 pg (28.0-32.0); Mean Corpuscular Hgb Conc. 32.8 g/dL (32.0-36.0); Mean Corpuscular Volume 79.8 fL (80.0-100.0); Monocytes # (auto) 0.5 10 ^3/uL (0-1.3); Monocytes % (auto) 8.9 % (0.0-12.0); Neutrophils % (auto) 57.4 % (37.0-80.0); Nucleated Red Blood Cells % 0.1 %; Red Cell Distribution Width 19.5 % (11.8-14.3)
[2023-09-25 12:17] LABS: Urine Bacteria FEW /hpf (None Seen); Urine Blood Negative /uL (Negative); Urine Clarity Clear (Clear); Urine Color Colorless (Yellow); Urine Hyaline Cast FEW /lpf (0 - 2); Urine Protein, UAD Negative (Negative); Urine Urobilinogen Normal (Negative); Urine WBC <1 /hpf (0 - 5)
[2023-09-25 12:19] LABS: Alanine Aminotransferase 15 U/L (7-40); Albumin 4.1 g/dL (3.2-4.8); Alkaline Phosphatase 59 U/L (46-116); Anion Gap 8 (5-15); Aspartate Aminotransferase 20 U/L (13-40); BUN/Creatinine Ratio 18.3 (10.0-20.0); Bilirubin, Total 0.3 mg/dL (0.2-1.0); Blood Urea Nitrogen 33 mg/dL (9-23); Calcium 8.8 mg/dL (8.7-10.4); Carbon Dioxide 27 mmol/L (20-30); Chloride 103 mmol/L (98-107); Glucose 160 mg/dL (74-106); Lipase 33 U/L (12-53); Potassium 4.4 mmol/L (3.5-5.1); Sodium 138 mmol/L (136-145); Total Protein 6.8 g/dL (5.7-8.2)
[2023-09-25 14:08] VITALS: BP 142/50; PULSE 53; RESP 19; TEMP 98; O2SAT 100
== END 2023-09-25 14:51 | disposition home or self-care (01) ==
LOC: ER 11:08
DX: R10.31 Right lower quadrant pain (principal); K59.00 Constipation, unspecified; I11.0 Hypertensive heart disease with heart failure; I50.9 Heart failure, unspecified; E11.9 Type 2 diabetes mellitus without complications; E78.5 Hyperlipidemia, unspecified; F32.9 Major depressive disorder, single episode, unspecified; Z86.2 Personal history of diseases of the blood and blood-forming organs and certain disorders involving the immune mechanism; Z86.73 Personal history of transient ischemic attack (TIA), and cerebral infarction without residual deficits; Z98.890 Other specified postprocedural states; Z79.899 Other long term (current) drug therapy
CPT/HCPCS: 36415; 74176; 80053; 81001; 83690; 85025; 93005

== ENCOUNTER → 2023-11-01 | Outpatient (CLI) | payer OTHER ==
[2023-11-01 08:34] LABS: Basophils # (auto) 0.1 10 ^3/uL (0-0.2); Basophils % (auto) 1.1 % (0.0-2.0); Eosinophils # (auto) 0.3 10 ^3/uL (0-0.8); Hematocrit 31.7 % (36.0-46.0); Hemoglobin 10.2 g/dL (12.2-16.2); Lymphocytes # (auto) 1.6 10 ^3/uL (0.4-5.4); Lymphocytes % (auto) 29.6 % (10.0-50.0); Mean Corpuscular Hemoglobin 26.3 pg (28.0-32.0); Mean Corpuscular Hgb Conc. 32.2 g/dL (32.0-36.0); Mean Corpuscular Volume 81.7 fL (80.0-100.0); Monocytes # (auto) 0.4 10 ^3/uL (0-1.3); Monocytes % (auto) 7.6 % (0.0-12.0); Neutrophils % (auto) 56.7 % (37.0-80.0); Nucleated Red Blood Cells % 0.1 %; Red Blood Cells 3.87 10^6/uL (4.0-5.20); Red Cell Distribution Width 17.4 % (11.8-14.3); White Blood Cell 5.3 10^3/uL (4.4-10.8)
[2023-11-01 09:21] LABS: Free T4 (Free Thyroxine) 1.41 ng/dL (0.89-1.76); T3 Total 0.65 ng/mL (0.60-1.81)
[2023-11-01 10:09] LABS: Magnesium 2.1 mg/dL (1.6-2.6)
== END | disposition home or self-care (01) ==
LOC: LAB 08:05
PROVIDERS: ATTEND Nurse Practitioner Gerontology
DX: E11.22 Type 2 diabetes mellitus with diabetic chronic kidney disease (principal); N18.9 Chronic kidney disease, unspecified; N17.9 Acute kidney failure, unspecified; E78.5 Hyperlipidemia, unspecified; E03.9 Hypothyroidism, unspecified; D50.9 Iron deficiency anemia, unspecified
CPT/HCPCS: 36415; 80061; 83036; 83735; 84439; 84443; 84480; 85025; 86704; 86706; 86708; 86803; 87340

== ENCOUNTER → 2023-11-14 | Outpatient (CLI) | payer OTHER | END | disposition home or self-care (01) | LOC: LAB 09:28 | PROVIDERS: ATTEND Nurse Practitioner Gerontology | DX: E11.22 Type 2 diabetes mellitus with diabetic chronic kidney disease (principal); N18.9 Chronic kidney disease, unspecified; N17.9 Acute kidney failure, unspecified; E87.5 Hyperkalemia; D50.9 Iron deficiency anemia, unspecified; E03.9 Hypothyroidism, unspecified | CPT/HCPCS: 82270 ==

== ENCOUNTER → 2024-01-02 | Outpatient (CLI) | payer OTHER ==
[~2024-01-02] MED LIST changes: -CAR125T OR; +CARV-216 OR; +POTA-36 PO; -POTA10TA51 PO
[2024-01-02 10:13] LABS: Basophils # (auto) 0.1 10 ^3/uL (0-0.2); Basophils % (auto) 1.1 % (0.0-2.0); Eosinophils # (auto) 0.1 10 ^3/uL (0-0.8); Eosinophils % (auto) 2.3 % (0.0-7.0); Hematocrit 33.2 % (36.0-46.0); Hemoglobin 10.7 g/dL (12.2-16.2); Lymphocytes # (auto) 1.8 10 ^3/uL (0.4-5.4); Lymphocytes % (auto) 28.2 % (10.0-50.0); Mean Corpuscular Hgb Conc. 32.3 g/dL (32.0-36.0); Mean Corpuscular Volume 83.4 fL (80.0-100.0); Monocytes # (auto) 0.5 10 ^3/uL (0-1.3); Monocytes % (auto) 7.4 % (0.0-12.0); Neutrophils # (auto) 3.8 10 ^3/uL (1.6-8.6); Red Blood Cells 3.99 10^6/uL (4.0-5.20); Red Cell Distribution Width 13.7 % (11.8-14.3); White Blood Cell 6.2 10^3/uL (4.4-10.8)
[2024-01-02 11:24] LABS: % Iron Saturation 35.7 % (15-50)
[2024-01-02 11:42] LABS: Folate (Folic Acid) 33.72 ng/mL (>5.38)
[2024-01-02 11:58] LABS: Albumin 4.2 g/dL (3.2-4.8); Alkaline Phosphatase 56 U/L (46-116); Anion Gap 7 (5-15); Aspartate Aminotransferase 18 U/L (13-40); BUN/Creatinine Ratio 27.9 (10.0-20.0); Bilirubin, Total 0.3 mg/dL (0.2-1.0); Blood Urea Nitrogen 53 mg/dL (9-23); Calcium 9.2 mg/dL (8.5-10.1); Carbon Dioxide 28 mmol/L (20-30); Chloride 103 mmol/L (98-107); Glucose 152 mg/dL (74-106); Potassium 4.5 mmol/L (3.5-5.1); Sodium 138 mmol/L (136-145)
[2024-01-02 12:02] LABS: Alanine Aminotransferase < 9 U/L (7-40)
== END | disposition home or self-care (01) ==
LOC: LAB 09:08
PROVIDERS: ATTEND Internal Medicine Gastroenterology
DX: K59.02 Outlet dysfunction constipation (principal); D64.9 Anemia, unspecified
CPT/HCPCS: 36415; 80053; 82607; 82746; 83540; 83550; 85025

== ENCOUNTER → 2024-02-07 | Outpatient (CLI) | payer OTHER ==
[2024-02-07 07:35] LABS: Basophils # (auto) 0.1 10 ^3/uL (0-0.2); Basophils % (auto) 0.9 % (0.0-2.0); Eosinophils # (auto) 0.3 10 ^3/uL (0-0.8); Eosinophils % (auto) 5.1 % (0.0-7.0); Hematocrit 28.2 % (36.0-46.0); Hemoglobin 9.1 g/dL (12.2-16.2); Lymphocytes # (auto) 1.8 10 ^3/uL (0.4-5.4); Mean Corpuscular Hemoglobin 27.1 pg (28.0-32.0); Mean Corpuscular Hgb Conc. 32.3 g/dL (32.0-36.0); Mean Corpuscular Volume 83.9 fL (80.0-100.0); Monocytes # (auto) 0.5 10 ^3/uL (0-1.3); Monocytes % (auto) 8.6 % (0.0-12.0); Neutrophils # (auto) 3.1 10 ^3/uL (1.6-8.6); Neutrophils % (auto) 53.4 % (37.0-80.0); Red Blood Cells 3.36 10^6/uL (4.0-5.20); Red Cell Distribution Width 13.6 % (11.8-14.3); White Blood Cell 5.7 10^3/uL (4.4-10.8)
[2024-02-07 08:06] LABS: Erythrocyte Sedimentation Rate 26 mm/hr (0-20)
[2024-02-07 08:29] LABS: Alanine Aminotransferase 10 U/L (7-40); Alkaline Phosphatase 57 U/L (46-116); Anion Gap 7 (5-15); Aspartate Aminotransferase 12 U/L (13-40); BUN/Creatinine Ratio 23.3 (10.0-20.0); Bilirubin, Total 0.3 mg/dL (0.2-1.0); Blood Urea Nitrogen 31 mg/dL (9-23); CRP High Sensitivity 0.04 mg/dL (<1.0); Calcium 9.5 mg/dL (8.5-10.1); Carbon Dioxide 26 mmol/L (20-30); Chloride 109 mmol/L (98-107); Glucose 136 mg/dL (74-106); Potassium 4.9 mmol/L (3.5-5.1); Sodium 142 mmol/L (136-145)
[2024-02-07 08:30] LABS: Total Protein 6.5 g/dL (5.7-8.2)
[2024-02-07 09:22] LABS: % Iron Saturation 34.1 % (15-50)
[2024-02-07 12:04] LABS: Ferritin 119.1 ng/mL (10-291)
[2024-02-08 12:07] LABS: Albumin 3.2 g/dL (2.9-4.4); Alpha-1-Globulin 0.2 g/dL (0.0-0.4); Alpha-2-Globulin 0.8 g/dL (0.4-1.0); Gamma Globulin 1.1 g/dL (0.4-1.8); Globulin Total 3.1 g/dL (2.2-3.9); Protein Total Serum 6.3 g/dL (6.0-8.5)
[2024-02-10 10:06] LABS: Vitamin B6 13.2 ug/L (3.4-65.2)
== END | disposition home or self-care (01) ==
LOC: LAB 07:16
PROVIDERS: ATTEND Internal Medicine
DX: D64.9 Anemia, unspecified (principal); Z79.899 Other long term (current) drug therapy
CPT/HCPCS: 36415; 80053; 82306; 82607; 82728; 83540; 83550; 84155; 84165; 84207; 84443; 85025; 85652; 86141

== ENCOUNTER 2024-02-24 19:08 | Emergency (ER) | payer OTHER ==
[~2024-02-24] VITALS: Ht 152.4 cm; Wt 54.0 kg
[2024-02-24 21:15] LABS: Urine Bacteria None Seen /hpf (None Seen)
[2024-02-24 21:20] LABS: Basophils # (auto) 0.1 10 ^3/uL (0-0.2); Eosinophils # (auto) 0.1 10 ^3/uL (0-0.8); Eosinophils % (auto) 1.4 % (0.0-7.0); Hematocrit 24.5 % (36.0-46.0); Lymphocytes # (auto) 1.4 10 ^3/uL (0.4-5.4); Lymphocytes % (auto) 17.2 % (10.0-50.0); Mean Corpuscular Hemoglobin 27.4 pg (28.0-32.0); Mean Corpuscular Hgb Conc. 32.7 g/dL (32.0-36.0); Mean Corpuscular Volume 83.8 fL (80.0-100.0); Monocytes # (auto) 0.6 10 ^3/uL (0-1.3); Monocytes % (auto) 6.8 % (0.0-12.0); Neutrophils # (auto) 6.2 10 ^3/uL (1.6-8.6); Neutrophils % (auto) 73.6 % (37.0-80.0); Nucleated Red Blood Cells % 0.1 %; Red Blood Cells 2.93 10^6/uL (4.0-5.20); Red Cell Distribution Width 13.7 % (11.8-14.3); White Blood Cell 8.4 10^3/uL (4.4-10.8)
[2024-02-24 21:35] LABS: Urine Blood Negative /uL (Negative); Urine Clarity Clear (Clear); Urine Color Light-Yellow (Yellow); Urine Protein, UAD TRACE (Negative); Urine Specific Gravity 1.015 (1.001-1.035); Urine Urobilinogen Normal (Negative); Urine WBC 5 /hpf (0 - 5)
[2024-02-24 21:37] LABS: Alanine Aminotransferase 23 U/L (7-40); Albumin 3.8 g/dL (3.2-4.8); Alkaline Phosphatase 65 U/L (46-116); Anion Gap 7 (5-15); Aspartate Aminotransferase 22 U/L (13-40); BUN/Creatinine Ratio 20.5 (10.0-20.0); Bilirubin, Total 1.1 mg/dL (0.2-1.0); Blood Urea Nitrogen 32 mg/dL (9-23); Carbon Dioxide 21 mmol/L (20-30); Chloride 107 mmol/L (98-107); Glucose 280 mg/dL (74-106); Lipase 29 U/L (12-53); Potassium 4.8 mmol/L (3.5-5.1); Sodium 135 mmol/L (136-145); Total Protein 6.5 g/dL (5.7-8.2)
[2024-02-24 21:39] VITALS: PULSE 65; RESP 18; O2SAT 98
[2024-02-24 22:27] VITALS: BP 159/56; PULSE 64; RESP 19; TEMP 97.8; O2SAT 96
== END 2024-02-24 22:36 | disposition home or self-care (01) ==
LOC: ER 19:08
DX: D64.9 Anemia, unspecified (principal); R50.9 Fever, unspecified; E78.5 Hyperlipidemia, unspecified; I11.0 Hypertensive heart disease with heart failure; I50.89 Other heart failure; E11.9 Type 2 diabetes mellitus without complications; Z86.73 Personal history of transient ischemic attack (TIA), and cerebral infarction without residual deficits; Z90.49 Acquired absence of other specified parts of digestive tract; Z98.890 Other specified postprocedural states
CPT/HCPCS: 36415; 74176; 80053; 81001; 83690; 85025; 93005

== ENCOUNTER 2024-03-12 16:06 | Inpatient (IN) | payer OTHER ==
[~2024-03-12] VITALS: Ht 152.4 cm; Wt 57.8 kg
[~2024-03-12 16:06] MED LIST changes: +AMLO1TAB22 PO; +APIX5TAB PO
[2024-03-12] MEDS: SODIUM CHLORIDE 0.9% 1,000 ML IV ONE ×2 (17:00→18:30)
[2024-03-12] MEDS: ACETAMINOPHEN 500 MG TAB PO ONE (17:30)
[2024-03-12 18:00] VITALS: RESP 12; O2SAT 93
[2024-03-12] MEDS: IBUPROFEN 400 MG TAB PO ONE (18:14)
[2024-03-12] MEDS: dilTIAZem 25 MG/5 ML VIAL IV ONE (18:15)
[2024-03-12 19:23] LABS: Basophils # (auto) 0.1 10 ^3/uL (0-0.2); Basophils % (auto) 0.7 % (0.0-2.0); Eosinophils # (auto) 0.1 10 ^3/uL (0-0.8); Eosinophils % (auto) 1.3 % (0.0-7.0); Hematocrit 25.4 % (36.0-46.0); Hemoglobin 8.5 g/dL (12.2-16.2); Lymphocytes # (auto) 0.4 10 ^3/uL (0.4-5.4); Lymphocytes % (auto) 5.6 % (10.0-50.0); Mean Corpuscular Hemoglobin 28.1 pg (28.0-32.0); Mean Corpuscular Hgb Conc. 33.3 g/dL (32.0-36.0); Mean Corpuscular Volume 84.2 fL (80.0-100.0); Monocytes # (auto) 0.5 10 ^3/uL (0-1.3); Neutrophils # (auto) 6.3 10 ^3/uL (1.6-8.6); Neutrophils % (auto) 85.4 % (37.0-80.0); Red Blood Cells 3.01 10^6/uL (4.0-5.20); Red Cell Distribution Width 14.1 % (11.8-14.3); White Blood Cell 7.4 10^3/uL (4.4-10.8)
[2024-03-12 19:30] VITALS: PULSE 88; RESP 15; O2SAT 99
[2024-03-12 19:47] LABS: Alanine Aminotransferase 11 U/L (7-40); Albumin 3.5 g/dL (3.2-4.8); Alkaline Phosphatase 51 U/L (46-116); Anion Gap 13 (5-15); Aspartate Aminotransferase 10 U/L (13-40); Bilirubin, Total 0.4 mg/dL (0.2-1.0); Blood Urea Nitrogen 26 mg/dL (9-23); Calcium 8.3 mg/dL (8.7-10.4); Carbon Dioxide 16 mmol/L (20-30); Chloride 111 mmol/L (98-107); Glucose 135 mg/dL (74-106); Potassium 4.4 mmol/L (3.5-5.1); Sodium 140 mmol/L (136-145); Total Protein 5.6 g/dL (5.7-8.2)
[2024-03-12 20:30] LABS: Urine Bacteria None Seen /hpf (None Seen)
[2024-03-12] MEDS ORDERED: NITROGLYCERIN 0.4 MG SL TAB SL PRN (20:30)
[2024-03-12] MEDS ORDERED: ONDANSETRON HCL 4 MG/2 ML VIAL IV PRN (20:30)
[2024-03-12] MEDS ORDERED: DEXTROSE (50%) 50ML SYRG IV PRN (20:30)
[2024-03-12] MEDS ORDERED: MORPHINE SULFATE INJ 2 MG/ml SYRG IV PRN (20:30)
[2024-03-12 20:42] LABS: Urine Blood TRACE /uL (Negative); Urine Clarity Clear (Clear); Urine Color Colorless (Yellow); Urine Protein, UAD Negative (Negative); Urine Specific Gravity 1.008 (1.001-1.035); Urine Urobilinogen Normal (Negative); Urine WBC 1 /hpf (0 - 5); Urine pH 5.5 (5.0-9.0)
[2024-03-12] MEDS: cefTRIAXone 1GM/50ML D5W 50 ML IV ONE (21:23)
[2024-03-12 22:00] LABS: Rapid Influenza A Negative (Negative); Rapid Influenza B Negative (Negative)
[2024-03-12] MEDS: ACCU-CHEK COMFORT CURVE STRIP VI SCH (22:00)
[2024-03-12 22:05] LABS: COVID19 ANTIGEN SOFIA FIA POSITIVE (NEGATIVE)
[2024-03-12] MEDS: ATORVASTATIN 20 MG TAB PO SCH (22:37)
[2024-03-12] MEDS: levETIRAcetam 500 MG TAB PO SCH (22:38)
[2024-03-12] MEDS: APIXABAN 5 MG TAB PO SCH (22:38)
[2024-03-12] MEDS: InsuLIN REG 1unit/0.01ml Soln (100units/ml) SC SCH (22:39)
[2024-03-12 23:00] VITALS: BP 145/68; PULSE 126; RESP 20; TEMP 99.8; O2SAT 97
[2024-03-12] MEDS ORDERED: ALBUTEROL SULF HFA 90MCG INH 200DOSE IN PRN (23:00)
[2024-03-12] MEDS ORDERED: REMDESIVIR PER PHARMACY 0 ML IV SCH (23:00)
[2024-03-12 23:28] LABS: Magnesium 1.7 mg/dL (1.6-2.6)
[2024-03-12 23:38] LABS: CRP High Sensitivity 1.25 mg/dL (<1.0)
[2024-03-13] VITALS (13 sets, daily range): BP systolic 107–132; BP diastolic 41–76; PULSE 58–122; RESP 16–18; TEMP 97.9–99; O2SAT 92–99
[2024-03-13] MEDS: InsuLIN REG 1unit/0.01ml Soln (100units/ml) SC SCH (06:09)
[2024-03-13] MEDS: LEVOTHYROXINE SODIUM 25 MCG TAB PO SCH (06:10)
[2024-03-13 07:18] LABS: Basophils # (auto) 0 10 ^3/uL (0-0.2); Basophils % (auto) 0.5 % (0.0-2.0); Eosinophils # (auto) 0 10 ^3/uL (0-0.8); Eosinophils % (auto) 0.4 % (0.0-7.0); Hematocrit 27.7 % (36.0-46.0); Hemoglobin 9.2 g/dL (12.2-16.2); Lymphocytes # (auto) 0.6 10 ^3/uL (0.4-5.4); Lymphocytes % (auto) 6.6 % (10.0-50.0); Mean Corpuscular Hemoglobin 27.9 pg (28.0-32.0); Mean Corpuscular Hgb Conc. 33.2 g/dL (32.0-36.0); Mean Corpuscular Volume 84.1 fL (80.0-100.0); Monocytes # (auto) 0.6 10 ^3/uL (0-1.3); Monocytes % (auto) 7.6 % (0.0-12.0); Neutrophils # (auto) 7.3 10 ^3/uL (1.6-8.6); Neutrophils % (auto) 84.9 % (37.0-80.0); Red Cell Distribution Width 14.3 % (11.8-14.3); White Blood Cell 8.5 10^3/uL (4.4-10.8)
[2024-03-13 07:32] LABS: Alanine Aminotransferase 10 U/L (7-40); Albumin 3.6 g/dL (3.2-4.8); Alkaline Phosphatase 50 U/L (46-116); Anion Gap 12 (5-15); Aspartate Aminotransferase 12 U/L (13-40); BUN/Creatinine Ratio 17.2 (10.0-20.0); Blood Urea Nitrogen 23 mg/dL (9-23); Calcium 8.5 mg/dL (8.7-10.4); Carbon Dioxide 18 mmol/L (20-30); Chloride 113 mmol/L (98-107); Glucose 87 mg/dL (74-106); Potassium 4.3 mmol/L (3.5-5.1); Sodium 143 mmol/L (136-145)
[2024-03-13 07:33] LABS: Bilirubin, Total 0.4 mg/dL (0.2-1.0)
[2024-03-13] MEDS ORDERED: cefTRIAXone 1GM/50ML D5W 50 ML IV SCH (09:00)
[2024-03-13] MEDS: REMDESIVIR 200 MG in NS 210ml LOADING DOSE ADULT IV ONE (09:59)
[2024-03-13] MEDS: amLODIPine BESYLATE 5 MG TAB PO SCH (10:00)
[2024-03-13] MEDS: METOPROLOL SUCCINATE XL 50 MG TAB PO SCH (10:00)
[2024-03-13] MEDS: FUROSEMIDE 40 MG TAB PO SCH (10:00)
[2024-03-13] MEDS ORDERED: ENOXAPARIN SOD 40 MG/0.4 ML SYRINGE SC SCH (10:00)
[2024-03-13] MEDS: guaiFENesin 200 MG/10 ML UD PO PRN (12:20)
[2024-03-13 13:58] LABS: Amphetamine Screen, Urine Neg (NEGATIVE); Barbiturate Scree,Urine Neg (NEGATIVE); Benzodiazephine Screen, Urine Neg (NEGATIVE); Cocaine Screen, Urine Neg (NEGATIVE)
[2024-03-13 13:59] LABS: Cannabinoid Screen, Urine Neg (NEGATIVE); Opiate Scree,Urine Neg (NEGATIVE); Phencyclidine Screen, Urine Neg (NEGATIVE)
[2024-03-13] MEDS: PANTOPRAZOLE 40 MG/10 ML VIAL INJ IV ONE (14:08)
[2024-03-13] MEDS: methylPREDNISolone SOD SUCC 40 MG/ML VL IV ONE (14:08)
[2024-03-13] MEDS: FUROSEMIDE 40 MG/4 ML VIAL IV ONE (20:44)
[2024-03-13] MEDS: methylPREDNISolone SOD SUCC 40 MG/ML VL IV SCH (22:16)
[2024-03-14] VITALS (9 sets, daily range): BP systolic 101–120; BP diastolic 41–60; PULSE 20–82; RESP 16–20; TEMP 98–98.4; O2SAT 92–100
[2024-03-14 07:17] LABS: Basophils # (auto) 0.1 10 ^3/uL (0-0.2); Eosinophils # (auto) 0 10 ^3/uL (0-0.8); Hematocrit 29.5 % (36.0-46.0); Hemoglobin 9.6 g/dL (12.2-16.2); Lymphocytes # (auto) 0.9 10 ^3/uL (0.4-5.4); Lymphocytes % (auto) 10.9 % (10.0-50.0); Mean Corpuscular Hemoglobin 27.3 pg (28.0-32.0); Mean Corpuscular Hgb Conc. 32.4 g/dL (32.0-36.0); Mean Corpuscular Volume 84.2 fL (80.0-100.0); Monocytes # (auto) 0.2 10 ^3/uL (0-1.3); Monocytes % (auto) 2.6 % (0.0-12.0); Neutrophils # (auto) 6.9 10 ^3/uL (1.6-8.6); Neutrophils % (auto) 85.5 % (37.0-80.0); Nucleated Red Blood Cells % 0.2 %; Red Cell Distribution Width 14.3 % (11.8-14.3); White Blood Cell 8.1 10^3/uL (4.4-10.8)
[2024-03-14 07:34] LABS: Anion Gap 9 (5-15); Carbon Dioxide 22 mmol/L (20-30); Chloride 108 mmol/L (98-107); Potassium 3.9 mmol/L (3.5-5.1); Sodium 139 mmol/L (136-145)
[2024-03-14 07:36] LABS: Calcium 8.7 mg/dL (8.5-10.1)
[2024-03-14 07:40] LABS: BUN/Creatinine Ratio 15.6 (10.0-20.0); Blood Urea Nitrogen 25 mg/dL (9-23); Glucose 203 mg/dL (74-106)
[2024-03-14] MEDS: PANTOPRAZOLE 40 MG/10 ML VIAL INJ IV SCH (09:57)
[2024-03-14] MEDS: REMDESIVIR 100mg 100 MG in SODIUM CHL 0.9% 230 ML IV SCH (15:12)
[2024-03-14] MEDS ORDERED: METO5TAB2 PO (16:12)
[2024-03-14] MEDS ORDERED: MET25T PO (16:15)
[2024-03-14] MEDS ORDERED: clonazePAM 0.5 MG TAB PO PRN (16:30)
[2024-03-14] MEDS: InsuLIN REG 1unit/0.01ml Soln (100units/ml) SC ONE (19:28)
[2024-03-15] VITALS (11 sets, daily range): BP systolic 112–117; BP diastolic 54–66; PULSE 63–77; RESP 16–20; TEMP 97.5–98.3; O2SAT 93–99
[2024-03-15 06:50] LABS: Basophils # (auto) 0 10 ^3/uL (0-0.2); Basophils % (auto) 0.1 % (0.0-2.0); Eosinophils # (auto) 0 10 ^3/uL (0-0.8); Lymphocytes # (auto) 0.9 10 ^3/uL (0.4-5.4); Monocytes # (auto) 0.5 10 ^3/uL (0-1.3)
[2024-03-15 06:53] LABS: Hematocrit 28.2 % (36.0-46.0); Lymphocytes % (auto) 7.3 % (10.0-50.0); Mean Corpuscular Hemoglobin 27.1 pg (28.0-32.0); Mean Corpuscular Hgb Conc. 32.1 g/dL (32.0-36.0); Mean Corpuscular Volume 84.5 fL (80.0-100.0); Monocytes % (auto) 4.1 % (0.0-12.0); Neutrophils # (auto) 10.6 10 ^3/uL (1.6-8.6); Neutrophils % (auto) 88.5 % (37.0-80.0); Nucleated Red Blood Cells % 0.1 %; Red Blood Cells 3.34 10^6/uL (4.0-5.20); Red Cell Distribution Width 14.1 % (11.8-14.3)
[2024-03-15 07:00] LABS: Calcium 8.6 mg/dL (8.5-10.1); Chloride 109 mmol/L (98-107); Potassium 4.3 mmol/L (3.5-5.1); Sodium 139 mmol/L (136-145)
[2024-03-15 07:01] LABS: Anion Gap 9 (5-15); Carbon Dioxide 21 mmol/L (20-30)
[2024-03-15 07:06] LABS: BUN/Creatinine Ratio 17.5 (10.0-20.0); Blood Urea Nitrogen 35 mg/dL (9-23); Glucose 150 mg/dL (74-106)
[2024-03-15] MEDS: SERTRALINE HCL 50 MG TAB PO ONE (10:04)
[2024-03-16] VITALS (8 sets, daily range): BP systolic 111–131; BP diastolic 50–63; PULSE 51–74; RESP 14–20; TEMP 97.2–98.3; O2SAT 94–99
[2024-03-16 06:40] LABS: Eosinophils # (auto) 0 10 ^3/uL (0-0.8); Hemoglobin 9.4 g/dL (12.2-16.2)
[2024-03-16 06:42] LABS: Basophils # (auto) 0.1 10 ^3/uL (0-0.2); Basophils % (auto) 0.7 % (0.0-2.0); Hematocrit 28.4 % (36.0-46.0); Lymphocytes # (auto) 1.8 10 ^3/uL (0.4-5.4); Lymphocytes % (auto) 13.6 % (10.0-50.0); Mean Corpuscular Hemoglobin 27.3 pg (28.0-32.0); Mean Corpuscular Hgb Conc. 33.2 g/dL (32.0-36.0); Mean Corpuscular Volume 82.3 fL (80.0-100.0); Monocytes # (auto) 1.1 10 ^3/uL (0-1.3); Monocytes % (auto) 8.4 % (0.0-12.0); Neutrophils # (auto) 9.9 10 ^3/uL (1.6-8.6); Neutrophils % (auto) 77.3 % (37.0-80.0); Red Blood Cells 3.46 10^6/uL (4.0-5.20); Red Cell Distribution Width 14.1 % (11.8-14.3); White Blood Cell 12.8 10^3/uL (4.4-10.8)
[2024-03-16 07:02] LABS: Alanine Aminotransferase 12 U/L (7-40); Albumin 3.7 g/dL (3.2-4.8); Alkaline Phosphatase 53 U/L (46-116); Anion Gap 9 (5-15); Aspartate Aminotransferase 14 U/L (13-40); BUN/Creatinine Ratio 26.9 (10.0-20.0); Bilirubin, Total 0.2 mg/dL (0.2-1.0); Calcium 8.5 mg/dL (8.5-10.1); Carbon Dioxide 24 mmol/L (20-30); Chloride 107 mmol/L (98-107); Glucose 106 mg/dL (74-106); Potassium 3.7 mmol/L (3.5-5.1); Sodium 140 mmol/L (136-145); Total Protein 6.2 g/dL (5.7-8.2)
[2024-03-16 07:03] LABS: Blood Urea Nitrogen 50 mg/dL (9-23)
[2024-03-16] MEDS: SERTRALINE HCL 50 MG TAB PO SCH (10:55)
[2024-03-16] MEDS: ACETAMINOPHEN 325 MG TAB PO PRN (10:55)
[2024-03-16] MEDS ORDERED: ACET-1882 PO (13:23)
[2024-03-16] MEDS ORDERED: GUA200LQ PO (13:23)
== END 2024-03-16 12:30 | disposition home or self-care (01) | DRG 871 ==
LOC: ER 16:06 → TELE 20:44 → TELE-WESTW 03-13 00:49 → WEST WING 03-15 18:48
PROVIDERS: ADMIT Internal Medicine; ATTEND Emergency Medicine
PROC: XW033E5 Introduction of Remdesivir Anti-infective into Peripheral Vein, Percutaneous Approach, New Technology Group 5 (ICD-10-PCS; principal; 2024-03-14)
DX: A41.9 Sepsis, unspecified organism (principal); I50.23 Acute on chronic systolic (congestive) heart failure; J12.82 Pneumonia due to coronavirus disease 2019; U07.1 COVID-19; J96.21 Acute and chronic respiratory failure with hypoxia; D68.69 Other thrombophilia; N17.9 Acute kidney failure, unspecified; I13.0 Hypertensive heart and chronic kidney disease with heart failure and stage 1 through stage 4 chronic kidney disease, or unspecified chronic kidney disease; D64.9 Anemia, unspecified; N18.30 Chronic kidney disease, stage 3 unspecified; F32.A Depression, unspecified; I48.91 Unspecified atrial fibrillation; E11.22 Type 2 diabetes mellitus with diabetic chronic kidney disease; E78.5 Hyperlipidemia, unspecified; Z86.73 Personal history of transient ischemic attack (TIA), and cerebral infarction without residual deficits; Z82.0 Family history of epilepsy and other diseases of the nervous system
CPT/HCPCS: 36415; 71045; 80048; 80053; 80307; 81001; 82306; 82607; 82728; 82962; 83036; 83605; 83735; 83880; 84443; 84484; 85025; 85379; 86141; 87040; 87426; 87804; 93005; 93306; G0378; J1815; J2470

== ENCOUNTER → 2024-04-18 | Outpatient (CLI) | payer OTHER ==
[~2024-04-18] MED LIST changes: +ACET-1882 PO; -AMLO1TAB23 PO; -ASPI-736 PO; -AZIT-43 PO; -FUR20T PO; -FURO1TAB31 PO; +FURO20TA4 PO; +GUA200LQ PO; -METO-281 PO; +METO5TAB2 PO; -POTA-36 PO
[2024-04-18 07:46] LABS: Urine Bacteria None Seen /hpf (None Seen)
[2024-04-18 08:14] LABS: Eosinophils % (auto) 3.4 % (0.0-7.0); Lymphocytes % (auto) 34.9 % (10.0-50.0); Monocytes % (auto) 7.9 % (0.0-12.0); Neutrophils % (auto) 52.8 % (37.0-80.0); White Blood Cell 6.3 10^3/uL (4.4-10.8)
[2024-04-18 08:15] LABS: Basophils # (auto) 0.1 10 ^3/uL (0-0.2); Eosinophils # (auto) 0.2 10 ^3/uL (0-0.8); Hematocrit 29.5 % (36.0-46.0); Hemoglobin 9.7 g/dL (12.2-16.2); Lymphocytes # (auto) 2.2 10 ^3/uL (0.4-5.4); Mean Corpuscular Hemoglobin 27.1 pg (28.0-32.0); Mean Corpuscular Hgb Conc. 32.9 g/dL (32.0-36.0); Mean Corpuscular Volume 82.3 fL (80.0-100.0); Monocytes # (auto) 0.5 10 ^3/uL (0-1.3); Neutrophils # (auto) 3.3 10 ^3/uL (1.6-8.6); Red Blood Cells 3.58 10^6/uL (4.0-5.20); Red Cell Distribution Width 14.3 % (11.8-14.3)
[2024-04-18 08:16] LABS: Urine Blood Negative /uL (Negative); Urine Clarity Clear (Clear); Urine Color Colorless (Yellow); Urine Protein, UAD Negative (Negative); Urine Urobilinogen Normal (Negative); Urine WBC 1 /hpf (0 - 5)
[2024-04-18 08:32] LABS: Protein, Urine < 6.0 mg/dL (0.0-11.9)
[2024-04-18 08:35] LABS: Creatinine, Urine 32.26 mg/dL (30.0-125.0); Urine Protein/Creatinine Ratio 0.19
[2024-04-18 08:37] LABS: Micro Albumin < 3.0 mg/L (<30.0)
[2024-04-18 08:48] LABS: Alanine Aminotransferase 13 U/L (7-40); Albumin 3.8 g/dL (3.2-4.8); Alkaline Phosphatase 48 U/L (46-116); Anion Gap 4 (5-15); Aspartate Aminotransferase 13 U/L (13-40); BUN/Creatinine Ratio 30.8 (10.0-20.0); Blood Urea Nitrogen 45 mg/dL (9-23); Calcium 9.4 mg/dL (8.7-10.4); Carbon Dioxide 30 mmol/L (20-30); Chloride 108 mmol/L (98-107); Glucose 142 mg/dL (74-106); Magnesium 1.9 mg/dL (1.6-2.6); Phosphorus 3.5 mg/dL (2.4-5.1); Potassium 4.8 mmol/L (3.5-5.1); Sodium 142 mmol/L (136-145); Uric Acid 6.5 mg/dL (3.1-7.8)
[2024-04-18 08:49] LABS: Bilirubin, Total 0.3 mg/dL (0.2-1.0); Total Protein 6.4 g/dL (5.7-8.2)
== END | disposition home or self-care (01) ==
LOC: LAB 07:23
PROVIDERS: ATTEND Internal Medicine Nephrology
DX: E11.21 Type 2 diabetes mellitus with diabetic nephropathy (principal); N18.30 Chronic kidney disease, stage 3 unspecified; M10.9 Gout, unspecified; E21.3 Hyperparathyroidism, unspecified; N39.0 Urinary tract infection, site not specified; R80.9 Proteinuria, unspecified; D63.1 Anemia in chronic kidney disease
CPT/HCPCS: 36415; 80053; 81001; 82043; 82570; 83036; 83735; 83970; 84100; 84156; 84550; 85025

== ENCOUNTER → 2024-06-26 | Outpatient (CLI) | payer OTHER ==
[2024-06-26 07:47] LABS: Urine Bacteria None Seen /hpf (None Seen)
[2024-06-26 07:57] LABS: Basophils # (auto) 0.1 10 ^3/uL (0-0.2); Basophils % (auto) 0.9 % (0.0-2.0); Eosinophils # (auto) 0.4 10 ^3/uL (0-0.8); Eosinophils % (auto) 5.6 % (0.0-7.0); Hematocrit 33.1 % (36.0-46.0); Hemoglobin 10.9 g/dL (12.2-16.2); Lymphocytes # (auto) 1.9 10 ^3/uL (0.4-5.4); Lymphocytes % (auto) 29.5 % (10.0-50.0); Mean Corpuscular Hemoglobin 27.2 pg (28.0-32.0); Mean Corpuscular Hgb Conc. 32.9 g/dL (32.0-36.0); Mean Corpuscular Volume 82.7 fL (80.0-100.0); Monocytes # (auto) 0.5 10 ^3/uL (0-1.3); Monocytes % (auto) 7.8 % (0.0-12.0); Neutrophils # (auto) 3.6 10 ^3/uL (1.6-8.6); Neutrophils % (auto) 56.2 % (37.0-80.0); Platelet Count (auto) 272 10^3/uL (140-450); Red Cell Distribution Width 15.1 % (11.8-14.3); White Blood Cell 6.4 10^3/uL (4.4-10.8)
[2024-06-26 08:30] LABS: Alanine Aminotransferase 16 U/L (7-40); Albumin 4.1 g/dL (3.2-4.8); Alkaline Phosphatase 63 U/L (46-116); Anion Gap 6 (5-15); Aspartate Aminotransferase 15 U/L (13-40); BUN/Creatinine Ratio 22.4 (10.0-20.0); Blood Urea Nitrogen 35 mg/dL (9-23); Calcium 9.7 mg/dL (8.7-10.4); Carbon Dioxide 25 mmol/L (20-31); Chloride 112 mmol/L (98-107); Cholesterol 118 mg/dL (< 200); Glucose 109 mg/dL (74-106); HDL Cholesterol 46 mg/dL (40-59); LDL Cholesterol 59 mg/dL (< 100); Magnesium 2.3 mg/dL (1.6-2.6); Potassium 4.8 mmol/L (3.5-5.1); Sodium 143 mmol/L (136-145); Triglycerides 159 mg/dL (< 150)
[2024-06-26 08:31] LABS: Bilirubin, Total 0.2 mg/dL (0.2-1.0); Total Protein 6.6 g/dL (5.7-8.2)
[2024-06-26 08:37] LABS: Urine Blood Negative /uL (Negative); Urine Clarity Clear (Clear); Urine Color Light-Yellow (Yellow); Urine Protein, UAD Negative (Negative); Urine Specific Gravity 1.011 (1.001-1.035); Urine Urobilinogen Normal (Negative); Urine WBC 2 /hpf (0 - 5)
[2024-06-26 08:44] LABS: Uric Acid 5.3 mg/dL (3.1-7.8)
== END | disposition home or self-care (01) ==
LOC: LAB 07:29
PROVIDERS: ATTEND Internal Medicine
DX: Z00.01 Encounter for general adult medical examination with abnormal findings (principal); I13.0 Hypertensive heart and chronic kidney disease with heart failure and stage 1 through stage 4 chronic kidney disease, or unspecified chronic kidney disease; E11.22 Type 2 diabetes mellitus with diabetic chronic kidney disease; N18.4 Chronic kidney disease, stage 4 (severe); I50.9 Heart failure, unspecified; D72.829 Elevated white blood cell count, unspecified; E78.5 Hyperlipidemia, unspecified; E11.69 Type 2 diabetes mellitus with other specified complication
CPT/HCPCS: 36415; 80053; 80061; 81001; 83036; 83735; 83970; 84100; 84439; 84443; 84550; 85025; 87086

== ENCOUNTER → 2024-09-03 | Outpatient (CLI) | payer OTHER ==
[2024-09-03 18:34] LABS: % Iron Saturation 42.9 % (15-50)
[2024-09-03 18:37] LABS: Ferritin 74.3 ng/mL (10-291)
[2024-09-03 18:55] LABS: Alanine Aminotransferase 18 U/L (7-40); Albumin 4.3 g/dL (3.2-4.8); Alkaline Phosphatase 60 U/L (46-116); Anion Gap 9 (5-15); Aspartate Aminotransferase 24 U/L (13-40); BUN/Creatinine Ratio 29.4 (10.0-20.0); Bilirubin, Total 0.3 mg/dL (0.2-1.0); Calcium 9.7 mg/dL (8.7-10.4); Carbon Dioxide 25 mmol/L (20-31); Chloride 107 mmol/L (98-107); Sodium 141 mmol/L (136-145)
[2024-09-03 18:56] LABS: Total Protein 6.5 g/dL (5.7-8.2)
[2024-09-03 18:57] LABS: Blood Urea Nitrogen 50 mg/dL (9-23); Folate (Folic Acid) 29.69 ng/mL (>5.38); Glucose 142 mg/dL (74-106)
== END | disposition home or self-care (01) ==
LOC: LAB 15:36
PROVIDERS: ATTEND Student in an Organized Health Care Education/Training Program
DX: D64.9 Anemia, unspecified (principal)
CPT/HCPCS: 36415; 80053; 82607; 82728; 82746; 83540; 83550

== ENCOUNTER → 2024-09-25 | Outpatient (CLI) | payer OTHER ==
[2024-09-25 07:40] LABS: Urine Bacteria None Seen /hpf (None Seen)
[2024-09-25 08:01] LABS: Basophils # (auto) 0.1 10 ^3/uL (0-0.2); Basophils % (auto) 1.6 % (0.0-2.0); Eosinophils # (auto) 0.2 10 ^3/uL (0-0.8); Eosinophils % (auto) 3.3 % (0.0-7.0); Hematocrit 33.6 % (36.0-46.0); Hemoglobin 11.1 g/dL (12.2-16.2); Lymphocytes # (auto) 1.8 10 ^3/uL (0.4-5.4); Mean Corpuscular Hemoglobin 27.5 pg (28.0-32.0); Mean Corpuscular Hgb Conc. 32.9 g/dL (32.0-36.0); Mean Corpuscular Volume 83.4 fL (80.0-100.0); Monocytes # (auto) 0.4 10 ^3/uL (0-1.3); Monocytes % (auto) 6.7 % (0.0-12.0); Neutrophils # (auto) 3.6 10 ^3/uL (1.6-8.6); Neutrophils % (auto) 59.4 % (37.0-80.0); Nucleated Red Blood Cells % 0.1 %; Platelet Count (auto) 301 10^3/uL (140-450); Red Blood Cells 4.03 10^6/uL (4.0-5.20); White Blood Cell 6.1 10^3/uL (4.4-10.8)
[2024-09-25 08:22] LABS: Alanine Aminotransferase 14 U/L (7-40); Albumin 4.3 g/dL (3.2-4.8); Alkaline Phosphatase 56 U/L (46-116); Anion Gap 8 (5-15); Aspartate Aminotransferase 20 U/L (13-40); BUN/Creatinine Ratio 26.8 (10.0-20.0); Bilirubin, Total 0.3 mg/dL (0.2-1.0); Calcium 9.5 mg/dL (8.7-10.4); Carbon Dioxide 26 mmol/L (20-31); Cholesterol 122 mg/dL (< 200); LDL Cholesterol 64 mg/dL (< 100); Potassium 4.6 mmol/L (3.5-5.1); Sodium 143 mmol/L (136-145)
[2024-09-25 08:23] LABS: Total Protein 6.6 g/dL (5.7-8.2)
[2024-09-25 08:25] LABS: Blood Urea Nitrogen 41 mg/dL (9-23); Chloride 109 mmol/L (98-107); Glucose 126 mg/dL (74-106); HDL Cholesterol 36 mg/dL (40-59); Triglycerides 173 mg/dL (< 150)
[2024-09-25 09:01] LABS: Urine Blood Negative /uL (Negative); Urine Clarity Clear (Clear); Urine Color Light-Yellow (Yellow); Urine Protein, UAD Negative (Negative); Urine Specific Gravity 1.016 (1.001-1.035); Urine Squamous Epithelial Cell FEW /hpf (<5); Urine Urobilinogen Normal (Negative); Urine WBC 1 /HPF (0-5)
[2024-09-25 09:37] LABS: Creatinine, Urine 57.59 mg/dL (30.0-125.0)
== END | disposition home or self-care (01) ==
LOC: LAB 07:07
PROVIDERS: ATTEND Internal Medicine
DX: E11.22 Type 2 diabetes mellitus with diabetic chronic kidney disease (principal); N18.4 Chronic kidney disease, stage 4 (severe); I12.9 Hypertensive chronic kidney disease with stage 1 through stage 4 chronic kidney disease, or unspecified chronic kidney disease; E78.5 Hyperlipidemia, unspecified
CPT/HCPCS: 36415; 80053; 80061; 81001; 82043; 82570; 83036; 84439; 84443; 85025

== ENCOUNTER → 2024-11-01 | Outpatient (CLI) | payer OTHER ==
[2024-11-01 07:56] LABS: Urine Bacteria None Seen /hpf (None Seen)
[2024-11-01 08:34] LABS: Basophils # (auto) 0 10 ^3/uL (0-0.2); Basophils % (auto) 0.7 % (0.0-2.0); Eosinophils # (auto) 0.3 10 ^3/uL (0-0.8); Eosinophils % (auto) 4.3 % (0.0-7.0); Hematocrit 35.1 % (36.0-46.0); Hemoglobin 11.2 g/dL (12.2-16.2); Lymphocytes # (auto) 1.9 10 ^3/uL (0.4-5.4); Lymphocytes % (auto) 28.8 % (10.0-50.0); Mean Corpuscular Hemoglobin 26.6 pg (28.0-32.0); Mean Corpuscular Volume 83.2 fL (80.0-100.0); Monocytes # (auto) 0.5 10 ^3/uL (0-1.3); Monocytes % (auto) 7.4 % (0.0-12.0); Neutrophils # (auto) 3.8 10 ^3/uL (1.6-8.6); Neutrophils % (auto) 58.8 % (37.0-80.0); Nucleated Red Blood Cells % 0.1 %; Platelet Count (auto) 310 10^3/uL (140-450); Red Blood Cells 4.22 10^6/uL (4.0-5.20); Red Cell Distribution Width 14.6 % (11.8-14.3); White Blood Cell 6.5 10^3/uL (4.4-10.8)
[2024-11-01 08:36] LABS: Urine Blood Negative /uL (Negative); Urine Clarity Clear (Clear); Urine Color Light-Yellow (Yellow); Urine Protein, UAD Negative (Negative); Urine Specific Gravity 1.012 (1.001-1.035); Urine Squamous Epithelial Cell None Seen /hpf (<5); Urine Urobilinogen Normal (Negative); Urine WBC < 1 /HPF (0-5)
[2024-11-01 08:46] LABS: Creatinine, Urine 34.24 mg/dL (30.0-125.0)
[2024-11-01 09:21] LABS: Potassium 4.8 mmol/L (3.5-5.1)
[2024-11-01 09:22] LABS: Calcium 9.7 mg/dL (8.7-10.4)
[2024-11-01 09:26] LABS: BUN/Creatinine Ratio 30.2 (10.0-20.0); Uric Acid 4.4 mg/dL (3.1-7.8)
[2024-11-01 09:28] LABS: Albumin 4.2 g/dL (3.2-4.8)
[2024-11-01 09:29] LABS: Phosphorus 4.4 mg/dL (2.4-5.1)
== END | disposition home or self-care (01) ==
LOC: LAB 07:29
PROVIDERS: ATTEND Internal Medicine
DX: E11.22 Type 2 diabetes mellitus with diabetic chronic kidney disease (principal); N18.30 Chronic kidney disease, stage 3 unspecified; E11.21 Type 2 diabetes mellitus with diabetic nephropathy; N39.0 Urinary tract infection, site not specified; E21.3 Hyperparathyroidism, unspecified; E55.9 Vitamin D deficiency, unspecified; M10.9 Gout, unspecified; R80.9 Proteinuria, unspecified; D63.1 Anemia in chronic kidney disease
CPT/HCPCS: 36415; 80069; 81001; 82043; 82570; 83970; 84550; 85025

== ENCOUNTER 2024-11-30 13:35 | Emergency (ER) | payer OTHER ==
[~2024-11-30] VITALS: Ht 152.4 cm; Wt 45.1 kg
--- NOTE | 2024-11-30 14:51 | ED.PDOC ---
Musculoskeletal HPI Comments 79Y F with PMHx DM, HTN, HLD, CHF, CVA, and seizures presents to ED for chief complaint left shoulder pain s/p fall. Per , pt had a seizure after using the restroom last night and fell. Pt reports lt shoulder pain and presents with bruise to lt hand. Per pt, hands felt hot after the seizure episode. No other symptoms reported. Chief Complaint: Fall Injury Time Seen by MD: 14:40 Primary Care Provider: JONATHON Reviewed Notes: Nurses Notes, Medications, Allergies Allergies: Coded Allergies: NO KNOWN ALLERGIES (Unverified , 11/30/23) Home Meds Active Scripts Guaifenesin (Guaifenesin) 100 Mg/5 Ml Syp, 200 MG PO Q4HP PRN for 10 Days, #1 SYP Prov:ANTOINE SAUCEDO RESIDENT 03/16/24 Acetaminophen (Acetaminophen) 325 Mg Tab, 650 MG PO Q6HP PRN for 10 Days, #80 TAB Prov:ANTOINE SACUEDO RESIDENT 03/16/24 Pantoprazole Sodium Sesquihydr (Protonix) 40 Mg Tab, 40 MG PO DAILY, #30 TAB Prov:JÚNIOR DAVEY RESIDENT 08/12/23 Carvedilol (COREG) 12.5 Mg Tab, 12.5 MG OR BID for 30 Days, #60 TAB Prov:JÚNIOR DAVEY RESIDENT 08/12/23 Sucralfate (CARAFATE SUSP) 1 Gm/10 Ml Ss, 1 GM GT BIDAC for 30 Days, ML Prov:JÚNIOR DAVEY [facility] 08/12/23 Ferrous Sulfate (Ferrous Sulfate) 325 Mg Tab, 325 MG PO TID for 30 Days, #90 TAB Prov:JÚNIOR DAVEY RESIDENT 08/12/23 Reported Medications Apixaban Base (ELIQUIS) 5 Mg Tab, 1 TAB PO BID 03/14/24 Metoclopramide Hcl (Metoclopramide Hcl) 5 Mg Tab, 1 TAB PO BID 03/14/24 Amlodipine Besylate (Amlodipine Besylate) 5 Mg Tab, 1 TAB PO DAILY 03/14/24 Cholecalciferol (VITAMIN D3) 2,000 Unit Tab, 2000 UNIT PO DAILY, TAB 08/22/23 Alendronate Sodium (Alendronate Sodium) 35 Mg Tab, 35 MG PO Q7D, TAB 08/22/23 Gabapentin (Gabapentin) 100 Mg Cap, 100 MG PO HS, MG 08/11/23 Levetiracetam (Levetiracetam) 1,000 Mg Tab, 1 TAB PO BID 02/15/23 Levothyroxine Sodium (Euthyrox) 75 Mcg Tab, 75 MCG PO DAILY 02/15/23 Furosemide (Furosemide) 20 Mg Tab, 1 TAB PO DAILY 02/15/23 Metformin HCl (Metformin Hydrochloride) 1,000 Mg Tab, 1000 MG PO BID, TAB 06/02/21 Insulin Glargine (Lantus) 100 Unit/Ml Inj, 24 UNITS SC HS 06/02/21 Insulin Lispro (Human) (Humalog) 100 Unit/Ml Inj, 0 SC UNKNOWN FREQUENCY 06/02/21 Atorvastatin Calcium (ATORVASTATIN CALCIUM) 40 Mg Tab, 40 MG PO DAILY, TAB 06/02/21 Latanoprost (LATANOPROST) 0.005 % Mary, 1 DROP OP DAILY 06/02/21 Sertraline Hcl (Sertraline Hcl) 50 Mg Tab, 50 MG PO DAILY 06/02/21 Information Source: Patient, Spouse Mode of Arrival: Wheelchair Location: Left Extremity Location: Hand, Shoulder Timing: Days Prehospital treatment: None Severity: Mild Able to Move Extremity: Yes Bear Weight: Limited Pain: Mild Mechanism: Unknown Circumstances: Fall Onset of Symptoms: After Trauma Symptoms: Pain DVT Risk Factors: CHF Associated signs and symptoms: Shoulder pain, Other Past Medical History PAST MEDICAL HISTORY: Anemia, CHF, CVA, Depression, DM, High Lipids, HTN, Seizures Surgical History: Appendectomy, 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 INTERNS[employer] History: No Pertinent 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 INTER[employer] History Family History Family History: Reviewed,noncontributory to illness, No family hx of Cancer, No family hx of DM, No family hx of Heart lottie, No family hx of HTN, No family hx ofKidney lottie, No family hx of Liver lottie, No family hx of Lung lottie, No family hx of Stroke Family History (Other): History of Alzheimer's Social History Smoker: Non-Smoker Alcohol: Denies ETOH Use Drugs: Denies Drug Use Lives In: Home Constitutional: denies: chills, diaphoresis, fatigue, fever, malaise, sweats, weakness, others EENTM: denies: blurred vision, double vision, ear bleeding, ear discharge, ear drainage, ear pain, ear ringing, eye pain, eye redness, hearing loss, mouth pain, mouth swelling, nasal discharge, nose bleeding, nose congestion, nose pain, photophobia, tearing, throat pain, throat swelling, voice changes, others Respiratory: denies: cough, hemoptysis, orthopnea, SOB at rest, shortness of breath, SOB with excertion, stridor, wheezing, others Cardiovascular: denies: chest pain, dizzy spells, diaphoresis, Dyspnea on exertion, edema, irregular heart beat, left arm pain, lightheadedness, palpitations, PND, syncope, others Gastrointestinal: denies: abdomen distended, abdominal pain, blood streaked bowels, constipated, diarrhea, dysphagia, difficulty swallowing, hematemesis, melena, nausea, poor appetite, poor fluid intake, rectal bleeding, rectal pain, vomiting, others Genitourinary: denies: abnormal vagina bleeding, burning, dyspareunia, dysuria, flank pain, frequency, hematuria, incontinence, pain, , vagina discharge, urgency, others Neurological: denies: dizziness, fainting, headache, left sided numbness, left sided weakness, numbness, paresthesia, pre-existing deficit, right sided numbne ss, right sided weakness, seizure, speech problems, tingling, tremors, weakness, others Musculoskeletal: reports: others (lt shoulder pain); denies: back pain, gout, joint pain, joint swelling, muscle pain, muscle stiffness, neck pain Integumetry: reports: bruises (lt hand near thumb); denies: change in color, change in hair/nails, dryness, laceration, lesions, lumps, rash, wounds, others Allergic/Immunocompromised: denies: Difficulty Healing, Frequent Infections, Hives, Itching, others Hematologic/Lymphatic: denies: anemia, blood clots, easy bleeding, easy bruising, swollen glands, others Endocrine: denies: excessive hunger, excessive sweating, excessive thirst, excessive urination, flushing, intolerance to cold, intolerance to heat, unexplained weight gain, unexplained weight loss, others Psychiatric: denies: anxiety, bipolar disorder, depression, hopeless, panic disorder, schizophrenia, sleepless, suicidal, others All Other Systems: Reviewed and Negative Physical Exam General Appearance: No Apparent Distress, Normal HEENT: Normal ENT Inspection, Pharynx Normal, TMs Normal Neck: Full Range of Motion, Non-Tender, Normal, Normal Inspection Respiratory: Chest Non-Tender, Lungs Clear, No Accessory Muscle Use, No Respiratory Distress, Normal Breath Sounds Cardiovascular: No Edema, No Murmur, No Gallop, Normal Peripheral Pulses, Regular Rate/Rhythm Breast Exam: Deferred Gastrointestinal: No Organomegaly, Non Tender, Normal Bowel Sounds, Soft Genitalia: Deferred Pelvic: Deferred Rectal: Deferred Extremities: Normal capillary refill, Normal inspection, Normal range of motion, Non-tender Musculoskeletal : Location: Left Extremity Location: Shoulder Apperance: Limited ROM, Tenderness: Mild Neurologic: Alert, metal sprayer production II-XII nml as Tested, No Motor Deficits, Normal Affect, Normal Mood, No Sensory Deficits Cerebellar Function: NOT DONE Reflexes: NOT DONE Skin: Bruises (lt hand near thumb), Dry, Normal Color, Warm Lymphatic: NOT DONE Was a procedure done? Was a procedure done?: No Differential Diagnosis EXT Differential Diagnosis: Fracture, Sprain, Dislocation, DJD, Strain X-Ray, Labs, Meds, VS Vital Signs Date Time Temp Pulse Resp B/P (MAP) Pulse Ox O2 Delivery O2 Flow Rate FiO2 11/30/24 15:37 97.5 75 16 146/65 (92) 95 97.5 11/30/24 15:33 Room Air* 0 21 11/30/24 14:25 99.0 83 23 135/53 (80) 98 99.0 X-Ray, Labs, Meds, VS Comment This pleasant 79-year-old female with a past medical history significant stroke with residual left-sided weakness. She fell recently and now has generalized left shoulder pain. She was noted have ecchymosis to her left hand. However, she denies any increased weakness, pain, numbness to her left hand. Additionally, she was no other complaints of generalized pain to left shoulder. She states her range of motion has stayed constant despite the pain. Her physical exam was significant for the ecchymosis to her left hand without any obvious findings to the left hand, wrist, elbow. She had full passive range of motion to the left shoulder and weak atropine and her motion. She was tenderness palpation over the entirety of the left anterior shoulder but no focal areas of tenderness. X-ray did not show any obvious pathology she was to dislocation or fracture. As such, but she has a contusion left shoulder. She will be discharged home. He is asked to take [id number] Tylenol or ibuprofen as needed for pain and follow up with the PCP next 1 2 days return to the ER for any new/worse/worsening symptoms. She states her understanding. Time of 1ST Reevaluation: 15:10 Reevaluation 1ST: Unchanged Patient Education/Counseling: Diagnosis, Treatment Family Education/Counseling: Diagnosis, Treatment Departure 1 Departure Time of Disposition: 15:55 Impression: Primary Impression: Left shoulder pain Additional Impressions: Left shoulder strain Traumatic ecchymosis of left hand Disposition: 01 HOME / SELF CARE / HOMELESS Condition: Good Discharged With: Self, Spouse Critical Care Note Critical Care Time?: No Stability Stability form required: No Heart Score Heart Score: Heart Score Response (Comments) Value History N/A 0 EKG N/A 0 Age N/A 0 Risk Factors N/A 0 Troponin N/A 0 Total 0 I personally scribed for GABY CARREON MD ([email or web address]) on 11/30/24 at 14:51. Electronically submitted by Devi Anguiano ([email or web address]). GABY CARREON MD Nov 30, 2024 14:51
--- NOTE | 2024-11-30 15:20 | DVH ---
EXAM: XY L SHOULDER 2+ VIEW XRAY CLINICAL INDICATION: pain TECHNIQUE: XY L SHOULDER 2+ VIEW XRAY Comparison: None FINDINGS/IMPRESSION: There is no evidence of acute fracture or dislocation. The visualized joint space is well maintained. The alignment is anatomical. There is no radiopaque foreign body.
[2024-11-30 16:50] VITALS: BP 142/58; PULSE 75; RESP 16; TEMP 97.3; O2SAT 92
== END 2024-11-30 16:54 | disposition home or self-care (01) ==
LOC: ER 13:59
DX: S46.912A Strain of unspecified muscle, fascia and tendon at shoulder and upper arm level, left arm, initial encounter (principal); S60.222A Contusion of left hand, initial encounter; R56.9 Unspecified convulsions; I11.0 Hypertensive heart disease with heart failure; I50.9 Heart failure, unspecified; F32.A Depression, unspecified; E78.5 Hyperlipidemia, unspecified; E11.9 Type 2 diabetes mellitus without complications; Z79.01 Long term (current) use of anticoagulants; Z79.84 Long term (current) use of oral hypoglycemic drugs; Z79.890 Hormone replacement therapy; Z79.899 Other long term (current) drug therapy; Z86.73 Personal history of transient ischemic attack (TIA), and cerebral infarction without residual deficits; Z90.49 Acquired absence of other specified parts of digestive tract; W18.09XA Striking against other object with subsequent fall, initial encounter; Y93.89 Activity, other specified; Y92.89 Other specified places as the place of occurrence of the external cause; Y99.8 Other external cause status
CPT/HCPCS: 73030

== ENCOUNTER 2024-12-03 17:07 | Emergency (ER) | payer OTHER ==
[~2024-12-03] VITALS: Ht 152.4 cm; Wt 53.0 kg
[2024-12-03 17:34] VITALS: BP 133/58; PULSE 68; RESP 16; TEMP 98; O2SAT 96
[2024-12-04] MEDS ORDERED: CYCL-837 PO (09:50)
== END 2024-12-03 19:30 | disposition left against medical advice (07) ==
LOC: ER 17:07
DX: M25.512 Pain in left shoulder (principal); M54.9 Dorsalgia, unspecified; E11.9 Type 2 diabetes mellitus without complications; I10 Essential (primary) hypertension; Z86.73 Personal history of transient ischemic attack (TIA), and cerebral infarction without residual deficits; Z53.21 Procedure and treatment not carried out due to patient leaving prior to being seen by health care provider; W19.XXXA Unspecified fall, initial encounter; Y93.89 Activity, other specified; Y92.89 Other specified places as the place of occurrence of the external cause; Y99.8 Other external cause status

== ENCOUNTER 2024-12-04 08:03 | Emergency (ER) | payer OTHER ==
[~2024-12-04] VITALS: Ht 152.4 cm; Wt 52.2 kg
[2024-12-04 08:37] VITALS: BP 145/53; PULSE 83; RESP 12; TEMP 97.4; O2SAT 96
--- NOTE | 2024-12-04 09:08 | ED.PDOC ---
Back pain HPI HPI Comments 79Y F with PMHx DM, HTN, HLD, CHF, CVA, and seizures presents to ED for left shoulder pain s/p fall. Seen recently for the same complaint and discharged. XRAY negative. Per , pt had a seizure after using the restroom last night and fell. Pt reports left shoulder pain and requesting pain medication Chief Complaint: Body Pain Time Seen by MD: 08:51 Primary Care Provider: JONATHON Reviewed Notes: Nurses Notes, Medications, Allergies Allergies: Coded Allergies: NO KNOWN ALLERGIES (Unverified , 11/30/23) Home Meds Active Scripts Cyclobenzaprine Hcl (Cyclobenzaprine Hcl) 5 Mg Tab, 1 TAB PO QPM for 5 Days, #5 TAB 0 Refills Prov:BALJIT FRAUSTO [employer] HEL[employer] 12/04/24 Guaifenesin (Guaifenesin) 100 Mg/5 Ml Syp, 200 MG PO Q4HP PRN for 10 Days, #1 SYP Prov:ANTOINE SAUCEDO RESIDENT 03/16/24 Acetaminophen (Acetaminophen) 325 Mg Tab, 650 MG PO Q6HP PRN for 10 Days, #80 TAB Prov:ANTOINE SAUCEDO RESIDENT 03/16/24 Pantoprazole Sodium Sesquihydr (Protonix) 40 Mg Tab, 40 MG PO DAILY, #30 TAB Prov:JÚNIOR DAVEY RESIDENT 08/12/23 Carvedilol (COREG) 12.5 Mg Tab, 12.5 MG OR BID for 30 Days, #60 TAB Prov:[facility] 08/12/23 Sucralfate (CARAFATE SUSP) 1 Gm/10 Ml Ss, 1 GM GT BIDAC for 30 Days, ML Prov:[facility] 08/12/23 Ferrous Sulfate (Ferrous Sulfate) 325 Mg Tab, 325 MG PO TID for 30 Days, #90 TAB Prov:JÚNIOR DAVEY RESIDENT 08/12/23 Reported Medications Apixaban Base (ELIQUIS) 5 Mg Tab, 1 TAB PO BID 03/14/24 Metoclopramide Hcl (Metoclopramide Hcl) 5 Mg Tab, 1 TAB PO BID 03/14/24 Amlodipine Besylate (Amlodipine Besylate) 5 Mg Tab, 1 TAB PO DAILY 03/14/24 Cholecalciferol (VITAMIN D3) 2,000 Unit Tab, 2000 UNIT PO DAILY, TAB 08/22/23 Alendronate Sodium (Alendronate Sodium) 35 Mg Tab, 35 MG PO Q7D, TAB 08/22/23 Gabapentin (Gabapentin) 100 Mg Cap, 100 MG PO HS, MG 08/11/23 Levetiracetam (Levetiracetam) 1,000 Mg Tab, 1 TAB PO BID 02/15/23 Levothyroxine Sodium (Euthyrox) 75 Mcg Tab, 75 MCG PO DAILY 02/15/23 Furosemide (Furosemide) 20 Mg Tab, 1 TAB PO DAILY 02/15/23 Metformin HCl (Metformin Hydrochloride) 1,000 Mg Tab, 1000 MG PO BID, TAB 06/02/21 Insulin Glargine (Lantus) 100 Unit/Ml Inj, 24 UNITS SC HS 06/02/21 Insulin Lispro (Human) (Humalog) 100 Unit/Ml Inj, 0 SC UNKNOWN FREQUENCY 06/02/21 Atorvastatin Calcium (ATORVASTATIN CALCIUM) 40 Mg Tab, 40 MG PO DAILY, TAB 06/02/21 Latanoprost (LATANOPROST) 0.005 % Mary, 1 DROP OP DAILY 06/02/21 Sertraline Hcl (Sertraline Hcl) 50 Mg Tab, 50 MG PO DAILY 06/02/21 Information Source: Patient Mode of Arrival: Ambulatory Past Medical History PAST MEDICAL HISTORY: Anemia, CHF, CVA, Depression, DM, High Lipids, HTN, Seizures Surgical History: Appendectomy, 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 Family History Family History: Reviewed,noncontributory to illness, No family hx of Cancer, No family hx of DM, No family hx of Heart lottie, No family hx of HTN, No family hx ofKidney lottie, No family hx of Liver lottie, No family hx of Lung lottie, No family hx of Stroke Family History (Other): History of Alzheimer's Social History Smoker: Non-Smoker Alcohol: Denies ETOH Use Drugs: Denies Drug Use Lives In: Home All Other Systems: Reviewed and Negative (Per HPI) Physical Exam General Appearance: No Apparent Distress, Normal HEENT: Normal ENT Inspection, Pharynx Normal, TMs Normal Neck: Full Range of Motion, Non-Tender, Normal, Normal Inspection Respiratory: Chest Non-Tender, Lungs Clear, No Accessory Muscle Use, No Respiratory Distress, Normal Breath Sounds Cardiovascular: No Edema, No JVD, No Murmur, No Gallop, Normal Peripheral Pulses, Regular Rate/Rhythm Breast Exam: Deferred Gastrointestinal: No Organomegaly, Non Tender, No Pulsatile Mass, Normal Bowel Sounds, Soft Genitalia: Deferred Pelvic: Deferred Rectal: Deferred Extremities: No calf tenderness, Normal capillary refill, Normal inspection, Normal range of motion, Non-tender, No pedal edema Musculoskeletal : Apperance: Normal Neurologic: Alert, help desk team leader II-XII nml as Tested, No Motor Deficits, Normal Affect, Normal Mood, No Sensory Deficits Cerebellar Function: Normal Reflexes: Normal Skin: Dry, Normal Color, Warm Lymphatic: No Adenopathy Was a procedure done? Was a procedure done?: No Back Pain Differential Dx Differential Diagnosis: Musculoskeletal Pain X-Ray, Labs, Meds, VS Vital Signs Date Time Temp Pulse Resp B/P (MAP) Pulse Ox O2 Delivery O2 Flow Rate FiO2 12/04/24 08:37 97.4 83 12 145/53 (83) 96 97.4 Current Medications Medications (Trade) Dose Ordered Sig/Michael Route Start Time Stop Time Status Last Admin Acetaminophen/ Hydrocodone Bitart ([place] 5/325MG Tab) 1 tab ONCE ONCE PO 12/04/24 09:15 12/04/24 09:16 DC 12/04/24 09:22 X-Ray, Labs, Meds, VS Comment I considered serious pathology however patients presentation most consistent with nonemergent musculoskeletal etiology Further workup will be deferred for outpatient Disposition: Discharge. Strict return precautions discussed with the patient with full understanding. Supportive care advised (rest, ice, heat, NSAIDs, stretching exercises) Massage muscles with cold pack or ice for 20 minutes 4 times per day. Usually most useful if there is swelling during the first 48 hours Heating pad on the most painful area for 20 minutes to relieve muscle spasm Sleep and the most comfortable sleeping position (usually on the side with knees bent) Light stretching, no strenuous activity Discussed possible benefits of yoga and acupuncture Return precautions discussed including Inability to walk/bear weight Paresthesia/weakness/leg pain Fecal/urinary incontinence Any worsening symptoms Time of 1ST Reevaluation: 09:30 Reevaluation 1ST: Improved Patient Education/Counseling: Diagnosis, Treatment Family Education/Counseling: Diagnosis, Treatment Departure 1 Departure Time of Disposition: 09:38 Impression: Primary Impression: Left shoulder pain Qualified Codes: M25.512 - Pain in left shoulder Disposition: 01 HOME / SELF CARE / HOMELESS Condition: Stable e-Prescriptions Cyclobenzaprine Hcl (Cyclobenzaprine Hcl) 5 Mg Tab 1 TAB PO QPM for 5 Days, #5 TAB 0 Refills Prov: BALJIT FRAUSTO [employer] HEL[employer] 12/04/24 Critical Care Note Critical Care Time?: No Stability Stability form required: No Heart Score Heart Score: Heart Score Response (Comments) Value History N/A 0 EKG N/A 0 Age N/A 0 Risk Factors N/A 0 Troponin N/A 0 Total 0 BALJIT FRAUSTO NP Dec 04, 2024 09:08
[2024-12-04] MEDS: HYDROcodone-ACET 5/325MG TAB PO ONE (09:22)
[2024-12-04] MEDS ORDERED: CYCL-837 PO (09:50)
== END 2024-12-04 10:12 | disposition home or self-care (01) ==
LOC: ER 08:03
DX: M25.512 Pain in left shoulder (principal); I11.0 Hypertensive heart disease with heart failure; I50.9 Heart failure, unspecified; E11.9 Type 2 diabetes mellitus without complications; E78.5 Hyperlipidemia, unspecified; F32.A Depression, unspecified; Z86.69 Personal history of other diseases of the nervous system and sense organs; Z86.73 Personal history of transient ischemic attack (TIA), and cerebral infarction without residual deficits; Z90.49 Acquired absence of other specified parts of digestive tract; Z79.890 Hormone replacement therapy; Z79.01 Long term (current) use of anticoagulants; Z79.84 Long term (current) use of oral hypoglycemic drugs; Z79.899 Other long term (current) drug therapy

== ENCOUNTER 2025-02-12 07:21 | Outpatient (CLI) | payer OTHER ==
[~2025-02-12 07:21] MED LIST changes: +CYCL-837 PO
[2025-02-12 07:49] LABS: Basophils # (auto) 0 10 ^3/uL (0-0.2); Basophils % (auto) 0.7 % (0.0-2.0); Eosinophils # (auto) 0.3 10 ^3/uL (0-0.8); Eosinophils % (auto) 4.9 % (0.0-7.0); Hemoglobin 11.5 g/dL (12.2-16.2); Lymphocytes # (auto) 1.8 10 ^3/uL (0.4-5.4); Lymphocytes % (auto) 31.5 % (10.0-50.0); Mean Corpuscular Hgb Conc. 32.8 g/dL (32.0-36.0); Mean Corpuscular Volume 82.4 fL (80.0-100.0); Monocytes # (auto) 0.5 10 ^3/uL (0-1.3); Monocytes % (auto) 7.9 % (0.0-12.0); Neutrophils # (auto) 3.2 10 ^3/uL (1.6-8.6); Platelet Count (auto) 313 10^3/uL (140-450); Red Blood Cells 4.25 10^6/uL (4.0-5.20); Red Cell Distribution Width 14.7 % (11.8-14.3); White Blood Cell 5.8 10^3/uL (4.4-10.8)
[2025-02-12 08:13] LABS: Alanine Aminotransferase 10 U/L (7-40); Albumin 4.1 g/dL (3.2-4.8); Alkaline Phosphatase 62 U/L (46-116); Anion Gap 9 (5-15); Aspartate Aminotransferase 18 U/L (13-40); BUN/Creatinine Ratio 20.5 (10.0-20.0); Calcium 9.8 mg/dL (8.7-10.4); Carbon Dioxide 27 mmol/L (20-31); Glucose 105 mg/dL (74-106); Sodium 144 mmol/L (136-145); Total Protein 6.6 g/dL (5.7-8.2)
[2025-02-12 08:19] LABS: Bilirubin, Total 0.2 mg/dL (0.2-1.0); Blood Urea Nitrogen 33 mg/dL (9-23); Chloride 108 mmol/L (98-107)
[2025-02-12 10:32] LABS: % Iron Saturation 20.8 % (15-50)
[2025-02-12 10:38] LABS: Ferritin 48.2 ng/mL (10-291)
[2025-02-12 10:59] LABS: Folate (Folic Acid) 21.51 ng/mL (>5.38)
== END 2025-02-12 17:00 | disposition home or self-care (01) ==
LOC: LAB 07:21
PROVIDERS: ATTEND Student in an Organized Health Care Education/Training Program
DX: D64.9 Anemia, unspecified (principal)
CPT/HCPCS: 36415; 80053; 82607; 82728; 82746; 83540; 83550; 85025

== ENCOUNTER 2025-02-15 07:19 | Outpatient (CLI) | payer OTHER ==
[2025-02-15 07:32] LABS: Urine Bacteria None Seen /hpf (None Seen)
[2025-02-15 07:46] LABS: Basophils # (auto) 0.1 10 ^3/uL (0-0.2); Basophils % (auto) 0.9 % (0.0-2.0); Eosinophils # (auto) 0.3 10 ^3/uL (0-0.8); Eosinophils % (auto) 5.4 % (0.0-7.0); Hemoglobin 11.7 g/dL (12.2-16.2); Lymphocytes # (auto) 1.9 10 ^3/uL (0.4-5.4); Mean Corpuscular Hemoglobin 27.4 pg (28.0-32.0); Mean Corpuscular Hgb Conc. 33.5 g/dL (32.0-36.0); Mean Corpuscular Volume 81.8 fL (80.0-100.0); Monocytes # (auto) 0.5 10 ^3/uL (0-1.3); Monocytes % (auto) 7.6 % (0.0-12.0); Neutrophils # (auto) 3.5 10 ^3/uL (1.6-8.6); Neutrophils % (auto) 56.1 % (37.0-80.0); Platelet Count (auto) 305 10^3/uL (140-450); Red Blood Cells 4.28 10^6/uL (4.0-5.20); Red Cell Distribution Width 14.9 % (11.8-14.3); White Blood Cell 6.3 10^3/uL (4.4-10.8)
[2025-02-15 07:54] LABS: Urine Blood Negative /uL (Negative); Urine Clarity Clear (Clear); Urine Color Light-Yellow (Yellow); Urine Protein, UAD Negative (Negative); Urine Specific Gravity 1.015 (1.001-1.035); Urine Squamous Epithelial Cell FEW /hpf (<5); Urine Urobilinogen Normal (Negative); Urine WBC 2 /HPF (0-5); Urine pH 5.5 (5.0-9.0)
[2025-02-15 08:04] LABS: Creatinine, Urine 44.82 mg/dL (30.0-125.0)
[2025-02-15 08:08] LABS: Alanine Aminotransferase 12 U/L (7-40); Albumin 4.1 g/dL (3.2-4.8); Alkaline Phosphatase 58 U/L (46-116); Anion Gap 9 (5-15); Aspartate Aminotransferase 16 U/L (<34); Calcium 9.5 mg/dL (8.7-10.4); Carbon Dioxide 28 mmol/L (20-31); Chloride 106 mmol/L (98-107); GFR African American 42 mL/min; GFR Non-African American 34 mL/min; Phosphorus 4.3 mg/dL (2.4-5.1); Potassium 4.7 mmol/L (3.5-5.1); Sodium 143 mmol/L (136-145); Total Protein 6.6 g/dL (5.7-8.2)
[2025-02-15 08:09] LABS: Bilirubin, Total 0.3 mg/dL (0.2-1.0); Glucose 146 mg/dL (74-106); Protein, Urine < 6.0 mg/dL (1-14); Urine Protein/Creatinine Ratio 0.13
[2025-02-15 08:29] LABS: Uric Acid 4.6 mg/dL (3.1-7.8)
[2025-02-15 08:30] LABS: BUN/Creatinine Ratio 20.6 (10.0-20.0)
[2025-02-15 08:33] LABS: Blood Urea Nitrogen 32 mg/dL (9-23)
== END 2025-02-15 17:00 | disposition home or self-care (01) ==
LOC: LAB 07:19
PROVIDERS: ATTEND Internal Medicine
DX: E11.22 Type 2 diabetes mellitus with diabetic chronic kidney disease (principal); E11.21 Type 2 diabetes mellitus with diabetic nephropathy; N18.30 Chronic kidney disease, stage 3 unspecified; E55.9 Vitamin D deficiency, unspecified; E21.3 Hyperparathyroidism, unspecified; D63.1 Anemia in chronic kidney disease
CPT/HCPCS: 36415; 80053; 80069; 81001; 82043; 82570; 83970; 84156; 84550; 85025

== ENCOUNTER → 2025-04-26 | Outpatient (CLI) | payer OTHER ==
[2025-04-26 09:12] LABS: Hematocrit 36.3 % (36.0-46.0); Hemoglobin 11.9 g/dL (12.2-16.2); Mean Corpuscular Hemoglobin 27.4 pg (28.0-32.0); Mean Corpuscular Volume 83.1 fL (80.0-100.0); Nucleated Red Blood Cells % 0.1 %
[2025-04-26 09:18] LABS: Urine Protein, UAD Negative (Negative)
[2025-04-26 09:46] LABS: Albumin 4.1 g/dL (3.2-4.8); Alkaline Phosphatase 53 U/L (46-116); Anion Gap 11 (5-15); BUN/Creatinine Ratio 25.9 (10.0-20.0); Calcium 9.4 mg/dL (8.7-10.4); Carbon Dioxide 24 mmol/L (20-31); Cholesterol 148 mg/dL (< 200); HDL Cholesterol 45 mg/dL (40-59); Potassium 4.8 mmol/L (3.5-5.1); Sodium 143 mmol/L (136-145); Total Protein 6.4 g/dL (5.7-8.2); Triglycerides 148 mg/dL (< 150)
[2025-04-26 09:47] LABS: Bilirubin, Total 0.4 mg/dL (0.2-1.0); Blood Urea Nitrogen 37 mg/dL (9-23); Chloride 108 mmol/L (98-107); Glucose 136 mg/dL (74-106)
[2025-04-26 09:53] LABS: Alanine Aminotransferase 14 U/L (7-40)
== END | disposition home or self-care (01) ==
LOC: LAB 08:41
PROVIDERS: ATTEND Internal Medicine
DX: I13.0 Hypertensive heart and chronic kidney disease with heart failure and stage 1 through stage 4 chronic kidney disease, or unspecified chronic kidney disease (principal); E11.22 Type 2 diabetes mellitus with diabetic chronic kidney disease; E11.69 Type 2 diabetes mellitus with other specified complication; N18.4 Chronic kidney disease, stage 4 (severe); I50.9 Heart failure, unspecified; E78.2 Mixed hyperlipidemia; D64.9 Anemia, unspecified; Z00.01 Encounter for general adult medical examination with abnormal findings
CPT/HCPCS: 36415; 80053; 80061; 81001; 83036; 84439; 84443; 85025

== ENCOUNTER → 2025-05-10 | Outpatient (CLI) | payer OTHER ==
[2025-05-10 07:51] LABS: Urine Protein, UAD Negative (Negative)
[2025-05-10 07:53] LABS: Hematocrit 35.7 % (36.0-46.0); Hemoglobin 11.9 g/dL (12.2-16.2); Mean Corpuscular Hemoglobin 27.4 pg (28.0-32.0); Mean Corpuscular Volume 82.0 fL (80.0-100.0); Nucleated Red Blood Cells % 0.1 %
[2025-05-10 07:57] LABS: Protein, Urine 9.1 mg/dL (1-14)
[2025-05-10 08:10] LABS: Potassium 4.5 mmol/L (3.5-5.1); Sodium 143.0 mmol/L (136-145)
[2025-05-10 08:11] LABS: Anion Gap 7.0 (5-15); Calcium 9.5 mg/dL (8.7-10.4); Carbon Dioxide 27.0 mmol/L (20-31)
[2025-05-10 08:12] LABS: Chloride 109.0 mmol/L (98-107)
[2025-05-10 08:16] LABS: Albumin 4.2 g/dL (3.2-4.8); BUN/Creatinine Ratio 22.0 (10.0-20.0)
[2025-05-10 08:17] LABS: Magnesium 2.3 mg/dL (1.6-2.6)
[2025-05-10 08:20] LABS: Blood Urea Nitrogen 35.0 mg/dL (9-23); Glucose 137.0 mg/dL (74-106)
[2025-05-10 08:53] LABS: Uric Acid 4.9 mg/dL (3.1-7.8)
== END | disposition home or self-care (01) ==
LOC: LAB 07:09
PROVIDERS: ATTEND Internal Medicine
DX: E11.22 Type 2 diabetes mellitus with diabetic chronic kidney disease (principal); N18.30 Chronic kidney disease, stage 3 unspecified; N39.0 Urinary tract infection, site not specified; R80.9 Proteinuria, unspecified; E21.3 Hyperparathyroidism, unspecified; M10.9 Gout, unspecified; E55.9 Vitamin D deficiency, unspecified; D63.1 Anemia in chronic kidney disease
CPT/HCPCS: 36415; 80069; 81001; 82043; 82570; 83036; 83735; 83970; 84156; 84550; 85025

== ENCOUNTER 2025-05-20 06:15 | Outpatient (CLI) | payer OTHER ==
[2025-05-20 07:23] LABS: Hematocrit 37.8 % (36.0-46.0); Hemoglobin 12.4 g/dL (12.2-16.2); Mean Corpuscular Hemoglobin 27.0 pg (28.0-32.0); Mean Corpuscular Volume 82.0 fL (80.0-100.0); Nucleated Red Blood Cells % 0.0 %
[2025-05-20 08:06] LABS: Alanine Aminotransferase 27 U/L (7-40); Albumin 4.3 g/dL (3.2-4.8); Alkaline Phosphatase 61 U/L (46-116); Anion Gap 10 (5-15); BUN/Creatinine Ratio 30.8 (10.0-20.0); Calcium 9.0 mg/dL (8.7-10.4); Carbon Dioxide 25 mmol/L (20-31); Chloride 105 mmol/L (98-107); Potassium 4.3 mmol/L (3.5-5.1); Sodium 140 mmol/L (136-145); Total Protein 7.1 g/dL (5.7-8.2)
[2025-05-20 08:07] LABS: Bilirubin, Total 0.4 mg/dL (0.2-1.0)
[2025-05-20 08:09] LABS: Blood Urea Nitrogen 48 mg/dL (9-23); Glucose 151 mg/dL (74-106)
[2025-05-20 08:14] LABS: Iron 129.0 ug/dL (50-170)
[2025-05-20 08:17] LABS: Total Iron Binding Capacity 301.0 ug/dL (250-425)
[2025-05-20 10:42] LABS: Ferritin 46.2 ng/mL (10-291)
== END 2025-05-20 17:00 | disposition home or self-care (01) ==
LOC: LAB 06:15
DX: N18.9 Chronic kidney disease, unspecified (principal); D63.1 Anemia in chronic kidney disease; E53.9 Vitamin B deficiency, unspecified; D64.9 Anemia, unspecified; Z79.899 Other long term (current) drug therapy
CPT/HCPCS: 36415; 80053; 82306; 82607; 82728; 83090; 83540; 83550; 85025

== ENCOUNTER 2025-09-03 07:11 | Outpatient (CLI) | payer OTHER ==
[2025-09-03 07:58] LABS: Alanine Aminotransferase 11 U/L (7-40); Albumin 4.1 g/dL (3.2-4.8); Alkaline Phosphatase 52 U/L (46-116); Anion Gap 6 (5-15); BUN/Creatinine Ratio 20.6 (10.0-20.0); Calcium 9.5 mg/dL (8.7-10.4); Carbon Dioxide 28 mmol/L (20-31); Glucose 83 mg/dL (74-106); Magnesium 1.7 mg/dL (1.6-2.6); Sodium 142 mmol/L (136-145); Total Protein 6.6 g/dL (5.7-8.2)
[2025-09-03 08:00] LABS: Bilirubin, Total 0.3 mg/dL (0.2-1.0); Blood Urea Nitrogen 29 mg/dL (9-23); Chloride 108 mmol/L (98-107)
[2025-09-03 08:04] LABS: Potassium 5.6 mmol/L (3.5-5.1)
[2025-09-03 08:15] LABS: Protein, Urine 16.4 mg/dL (1-14)
[2025-09-03 08:54] LABS: Uric Acid 4.6 mg/dL (3.1-7.8)
== END 2025-09-03 17:00 | disposition home or self-care (01) ==
LOC: LAB 07:11
PROVIDERS: ATTEND Internal Medicine Nephrology
DX: E11.22 Type 2 diabetes mellitus with diabetic chronic kidney disease (principal); N18.30 Chronic kidney disease, stage 3 unspecified; E11.21 Type 2 diabetes mellitus with diabetic nephropathy; E21.3 Hyperparathyroidism, unspecified; E55.9 Vitamin D deficiency, unspecified; D63.1 Anemia in chronic kidney disease; N39.0 Urinary tract infection, site not specified; M10.9 Gout, unspecified; R80.9 Proteinuria, unspecified
CPT/HCPCS: 36415; 80053; 82570; 83735; 84100; 84156; 84550